=== PATIENT | female | born 1945 | race African-American/Black ===

== ENCOUNTER 2017-05-23 18:08 | Observation (INO) | payer MEDICARE ==
[~2017-05-23] VITALS: Ht 166.4 cm; Wt 108.3 kg
[2017-05-23 19:02] LABS: BASOPHILS 0.2 % (0-2); EOSINOPHILS 1.5 % (0-7); HEMATOCRIT 45.8 % (36.0-48.0); HEMOGLOBIN 15.4 g/dL (12-16); IMMATURE GRANULOCYTES 0.2 % (0-5); LYMPHOCYTES 56.6 % (15-50); MCH 31.4 pg (26.0-34.0); MCHC 33.6 g/dL (31.0-37.0); MCV 93.3 fL (80.0-100.0); MEAN PLATELET VOLUME 10.1 fL (7.4-10.4); MONOCYTES 4.6 % (2-11); NEUTROPHILS 36.9 % (40-80); PLATELET COUNT 272 10x3/uL (130-400); RBC 4.91 10x6/uL (4.00-5.40); RDW 15.6 % (11.5-14.5); WBC 10.7 10x3/uL (4.8-10.8)
[2017-05-23 19:24] LABS: ALBUMIN 3.3 g/dL (3.4-5.0); ANION GAP 15.9 mmol/L (8-16); BILIRUBIN - TOTAL 0.53 mg/dL (0.2-1.3); CARBON DIOXIDE 23.7 mmol/L (21.0-32.0); CREATININE - SERUM 1.3 mg/dL (0.6-1.3); POTASSIUM - SERUM 3.6 mmol/L (3.5-5.1); PROTEIN - SERUM 7.6 g/dL (6.4-8.2)
[2017-05-24] VITALS: BP 189/90
[2017-05-24] MEDS ORDERED: VALTREX1000 MG PO (00:22)
[2017-05-24] MEDS ORDERED: STERAPRED DS 1010 MG PO (00:23)
[2017-05-24] MEDS ORDERED: NORVASC5 MG PO (00:23)
[2017-05-24] MEDS ORDERED: PRINIVIL20 MG PO (00:23)
[2017-05-24] MEDS ORDERED: OMEPRAZOLE40 MG PO (00:23)
[2017-05-24] MEDS ORDERED: BAYER CHEWABLE81 MG PO (00:24)
[2017-05-24 00:54] VITALS: BP 189/90; Ht 166.4 cm; Wt 108.3 kg
[2017-05-24 04:00] VITALS: BP 146/95
[2017-05-24 09:12] VITALS: BP 131/66
--- NOTE | 2017-05-24 11:58 | NUR ---
TELEMETRY SR. UP ADLIB IN ROOM. GAIT STEADY.
[2017-05-24 12:39] VITALS: BP 156/87
[2017-05-24] MEDS ORDERED: NORVASC10 MG PO (12:46)
--- NOTE | 2017-05-24 14:22 | NUR ---
IV AND TELEMETRY DCD. DC PLANS GIVEN. UNDERSTANDING VOICED. ESCORTED TO CAR BY W/C.
--- NOTE | 2017-05-25 12:12 | DS ---
PATIENT:MADAY ROCHE :41 MEDICAL RECORD: [id number] DISCHARGE SUMMARY ADMISSION DATE: 05/23/17 DISCHARGE DATE: 05/24/17 A 72-year-old -Micronesian female. DATE OF ADMISSION: 05/24/2017. DATE OF DISCHARGE: 05/24/2017. ADMISSION DIAGNOSIS: Angioedema. DISCHARGE DIAGNOSIS: Angioedema. HOSPITAL COURSE: The patient was admitted for observation from the ER with lip swelling and tongue swelling likely secondary to lisinopril. The patient is asymptomatic. Symptoms have completely resolved and she is anxious for discharge. We will be discharge home in improved condition. Discontinue lisinopril, substitute amlodipine for blood pressure control. Follow up with Dr. Del Valle in 1 week. See chart for further details. TRANSINT:[id number] Voice Confirmation ID: [id number] DOCUMENT ID: [id number] XOCHITL GROVE DO at 1212 CC: [id number] DICTATION DATE: 05/24/17 1244 TILE ROOFER: 05/25/17 0017 DIS IN 05/24/17 [facility] [address] [place] [address]
--- NOTE | 2017-05-25 12:12 | HP ---
PATIENT: MADAY ROCHE MEDICAL RECORD: [id number] ACCOUNT: [id number] LOCATION:[address] : 41 ADMISSION DATE: 05/23/17 HISTORY AND PHYSICAL EXAMINATION HISTORY OF PRESENT ILLNESS: The patient presents to the Emergency Room with lip swelling, mouth and throat swelling, tongue swelling after taking her lisinopril. PAST MEDICAL HISTORY: Significant for hypertension, arthritis. ALLERGIES: REPORTED IS PENICILLIN. CURRENT MEDICATION LIST: Lisinopril, aspirin, omeprazole, hydrocodone, valacyclovir for recent shingles outbreak. REVIEW OF SYSTEMS: CONSTITUTIONAL: No acute change in weight or appetite. HEENT: Normocephalic. No visual changes, tinnitus, epistaxis. Did have acute onset of lip swelling, tongue swelling. CARDIOVASCULAR: Denies chest pain, denies palpitations. PULMONARY: Denies hemoptysis, denies night sweats. GASTROINTESTINAL: Denies hematemesis, hematochezia or melena. GENITOURINARY: Denies dysuria, no change in frequency. MUSCULOSKELETAL: No acute changes. PHYSICAL EXAMINATION: VITAL SIGNS: Temperature 97.7, blood pressure 131/66, heart rate 70, respirations 24, O2 sat 96% on room air. GENERAL: Alert, oriented, no acute distress. HEENT: Normocephalic, atraumatic. Eyes: Pupils equal, round, reactive to light and accommodation. Extraocular muscles intact. Conjunctivae not injected. Ears: Canals patent. TMs are intact. Nose: Nares patent without drainage. Throat: No erythema, no exudates. NECK: Supple. No lymphadenopathy. No JVD. HEART: Regular rate and rhythm. No S3, S4, no rub. LUNGS: Clear to auscultation bilaterally. Breathing is nonlabored. ABDOMEN: Soft and nontender. Bowel sounds in all 4 quadrants. EXTREMITIES: Present times 4, no edema. NEUROLOGIC: Intact. ASSESSMENT AND PLAN: CBC: White count 10.7, hemoglobin 15.4, hematocrit 45.8, platelets 272. Chemistry is normal. BUN 12, creatinine 1.3. ASSESSMENT AND PLAN: Angioedema, likely lisinopril reaction. Lisinopril is discontinued. The patient is started on amlodipine. Symptoms have completely resolved. The patient was admitted to observation and will discharge home in stable and significantly improved condition. TRANSINT:[id number] Voice Confirmation ID: [id number] DOCUMENT ID: [id number] HISTORY AND PHYSICAL [id number] MADAY ROCHE ROBERT DO at 1212 CC: [id number] DICTATION DATE: 05/24/17 1242 SLEEPER CUTTER: 05/24/17 1713 DIS IN 05/24/17 [facility] [address] [facility], [facility]
== END 2017-05-24 14:00 | disposition home or self-care (01) ==
LOC: D.ER 18:08 → OBSVTIME 22:34 → D.M2 22:34
PROVIDERS: Emergency Medicine; ADMIT Family Medicine
DX: T78.3XXA Angioneurotic edema, initial encounter (principal); I10 Essential (primary) hypertension

== ENCOUNTER 2018-06-26 07:57 | Outpatient (CLI) | payer MEDICARE ==
[~2018-06-26] VITALS: Ht 166.4 cm; Wt 110.9 kg
--- NOTE | ~2018-06-26 | OP ---
PATIENT NAME: MADAY ROCHE MEDICAL RECORD: [id number] :41 LOCATION:D.CAT ADMISSION DATE: SURGEON: MIRIAM BHATT MD DATE OF OPERATION: 06/26/2018 PROCEDURES: 1. PTCA stent RCA. 2. Intravascular ultrasound. 3. Left heart catheterization. 4. Selective coronary angiography. 5. Left ventriculogram. INDICATION: Angina and coronary artery disease. PROCEDURE IN DETAIL: After informed consent was obtained and after a detailed description of risks, benefits as well as alternative therapies, the patient elected to proceed with angiogram and angioplasty. The right radial area was prepped and draped in normal sterile fashion. Right radial artery was cannulated via modified Seldinger technique with placement of 6-Vincentian sheath. All catheters exchanged through this sheath. FINDINGS: Left ventriculogram was performed in a standard 30-degree CLAIRE view, reveals good cardiac wall motion throughout all segments. Overall ejection fraction estimated 60%. SELECTIVE CORONARY ANGIOGRAPHY: 1. Left main is with no significant angiographic disease. 2. Left anterior descending has moderate irregularities, but no flow-limiting stenosis. 3. The left circumflex has moderate irregularities, but no flow-limiting stenosis. 4. Right coronary artery has a 65% to 70% stenosis confirmed by intravascular ultrasound in the mid vessel. PTCA STENT OF THE RCA: The stent used was a 3.0 x 18 mm Integrity. Result was 0% residual stenosis. OVERALL IMPRESSION: Successful percutaneous transluminal angioplasty stent of the right coronary artery going from 65% to 70% initial stenosis to 0% residual. TRANSINT:[id number] Voice Confirmation ID: [id number] DOCUMENT ID: [id number] MIRIAM BHATT MD at 1816 CC: [id number] DICTATION DATE: 06/26/18 1155 MULTIPLE TUBE WINDING MACHINE OPERATOR: 06/26/18 1207 [address] [place] [address]
--- NOTE | ~2018-06-26 | HEMODYNAMI ---
PATIENT:MADAY ROCHE MEDICAL RECORD: [id number] : 41 LOCATION:DDEDE ADMISSION DATE: 06/26/18 Generatedon:06/26/201811:56 Patient name: MADAY ROCHE Patient #: [id number] SSN: : 1945 Date of study: 06/26/2018 Page: Of Hemodynamic Procedure Report Patient Data Patient Demographics Procedure consent was obtained First Name: MADAY Gender: Female Last Name: MELCHOR : 1945 [facility] Initial: L Age: 73 year(s) Patient #: [id number] Race: Black Additional ID: [id number] Contact details Address: [address] [place] [address] [facility] State: [place] City: [facility] Zip code: [address] Past Medical History Allergies Allergen Reaction Date Comments Reported Penicillins 06/26/2018 Admission Admission Data Admission Date: 06/26/2018 Admission Time: 7:57 Lab Results Lab Result Date: 06/26/2018 Lab Result Time: 0:00 Biochemistry Name Units Result Min Max BUN mg/dl 9 --(*---)-- 7 18 Creatinine mg/dl 1 --(--*-)-- 0.6 1.3 CBC Name Units Result Min Max Hemoglobin g/dl 14.2 --(*---)-- 13.5 17.5 Procedure Procedure Types Cath Procedure Diagnostic Procedure C [facility] w/Coronaries FFR/IVUS Intra-Coronary IVUS Initial Sedation Charges Moderate Sedation up to 15 minutes PCI Procedure Coronary Stent Coronary Stent Initial Procedure Description Procedure Date Procedure Date: 06/26/2018 Procedure Start Time: 11:38 Procedure End Time: 11:52 Procedure Staff Name Function Hamlet Whitaker MD Performing Physician Elvira George RT Monitor Shannan Nunez RT Scrub Carolina Barraza RN Nurse Procedure Data Cath Procedure Fluoroscopy Diagnostic fluoroscopy Total fluoroscopy Time: 3.8 time: 3.8 min min Diagnostic fluoroscopy Total fluoroscopy dose: 794 dose: 794 mGy mGy Contrast Material Contrast Material Type Amount (ml) Isovue 370 70 Entry Location Entry Primary Successful Side Size Upsize Upsize Entry Closure Aguayo ccessful Closure Location (Fr) 1 (Fr) 2 (Fr) Remarks Device Remarks Radial Right 6 Fr Mechanical artery Short Compression Estimated blood loss: 10 ml Diagnostic catheters Device Type Used For End Catheter Placement DIAGNOSTIC Bethany 110cm 5 Procedure Fr catheter ([id number]) Procedure Complications No complications Procedure Medications Medication Administration Route Dosage Oxygen NC 2 l/min Lidocaine 2% added to field 20 Heparin Flush Bag added to field 2 bags (1000units/500ml NS) 0.9% NaCl I.V. 100 ml/hr Radial Cocktail I.A. 1 syringe (Verapomil 2mg/Nitro 400mcg/Heparin 1500units) Versed I.V. 1 mg Fentanyl I.V. 50 mcg Versed I.V. 1 mg Fentanyl I.V. 50 mcg Heparin Bolus I.V. 4000 units Integrilin (Bolus I.V. 10.2 ml 2mg/ml) Versed I.V. 0.5 mg Plavix P.O. 600 mg Hemodynamics Rest HGB: 14.2 (g/dl) Heart Rate: 70 (bpm) Snapshots Pre Cath Intra NCS Post Cath Vital Signs Time Heart Resp SPO2 etCO2 NIBP (mmHg) Rhythm Pain Sedation Rate (ipm) (%) (mmHg) Status Level (bpm) 11:16:35 66 13 97 32.3 Measuring NSR 0 (11) 10(A) , No pain 11:17:28 65 17 96 31.5 208/103(153) NSR 0 (11) 10(A) , No pain 11:22:06 65 12 94 36.8 171/89(135) NSR 0 (11) 10(A) , No pain 11:26:47 60 15 95 34.5 156/76(113) NSR 0 (11) 10(A) , No pain 11:31:19 61 16 93 34.5 154/83(125) NSR 0 (11) 10(A) , No pain 11:35:58 60 17 93 30 148/77(108) NSR 0 (11) 10(A) , No pain 11:40:24 81 13 94 36 162/87(132) NSR 0 (11) 9(A) , No pain 11:45:03 72 12 93 33 165/82(109) NSR 0 (11) 9(A) , No pain 11:49:39 74 12 94 37.6 173/89(125) NSR 0 (11) 9(A) , No pain 11:56:02 75 14 95 35.3 169/87(132) NSR 0 (11) 10(A) , No pain Medications Time Medication Route Dose Verified Delivered Reason Note s Effectiveness by by 11:17:07 Oxygen NC 2 l/min Hamlet Buffie used for Sherman Barraza RN procedure 11:17:13 Lidocaine 2% added 20ml Hamlet Mcnulty for local to vial Sherman Whitaker MD anesthetic field 11:17:20 Heparin Flush added 2 bags Hamlet Mcnulty used for Bag to Sherman Whitaker MD procedure (1000units/500ml field NS) 11:17:30 0.9% NaCl I.V. 100 Hamlet Buffie Per physician ml/hr Sherman Barraza RN 11:32:20 Versed I.V. 1 mg Hamlet Figueroa for sedation Sherman Barraza RN 11:32:30 Fentanyl I.V. 50 mcg Hamlet Figueroa for sedation Sherman Barraza RN 11:39:46 Versed I.V. 1 mg Hamlet Figuerao for sedation Sherman Barraza RN 11:39:50 Fentanyl I.V. 50 mcg Hamlet Galarzaie for sedation Sherman Barraza RN 11:39:53 Radial Cocktail I.A. 1 Hamlet Mcnulty for (Verapomil syringe Sherman Whitaker MD vasodilation 2mg/Nitro 400mcg/Heparin 1500units) 11:43:25 Versed I.V. 0.5 mg Hamlet Figueroa for sedation Sherman Barraza RN 11:45:31 Heparin Bolus I.V. 4000 Hamlet Figueroa for VERI FIED units Sherman Barraza RN anticoagulation WITH DR WHITAKER 11:48:41 Integrilin I.V. 10.2 ml Hamlet Figueroa for WAST ED (Bolus 2mg/ml) Sherman Barraza RN antiplatelet 9.8 ML therapy OF VIAL 11:54:39 Plavix P.O. 600 mg Hamlet Figueroa for Sherman Barraza RN antiplatelet therapy Procedure Log Time Note 10:55:14 Elvira HESS(R) sent for patient. Start room use. 10:59:15 Time tracking: Regular hours (M-F 7:00 - 5:00) 10:59:18 Plan of Care:Hemodynamics will remain stable., Cardiac rhythm will remain stable., Comfort level will be maintained., Respiratory function will remain adequate., Patient/ family verbilizes understanding of procedure., Procedure tolerated without complication., Recovers from procedure without complications.. 10:59:25 H&P Date Dictated: 06/17/2018 Within 30 days and on chart., H&P Addendum completed by physician on day of procedure. (MUST COMPLETE FOR ALL OUTPATIENTS). 10:59:40 Patient allergic to Penicillins 11:01:01 Lab Result : BUN 9 mg/dl 11:01:01 Lab Result : Creatinine 1 mg/dl 11:01:01 Lab Result : Hemoglobin 14.2 g/dl 11:02:19 Patient received from Pre/Post Procedure Room to CCL 2 Alert and oriented. Tansferred to table in Supine position. 11:02:21 Warm blankets applied, and maynor hugger turned on for patient comfort. 11:02:21 Correct patient and procedure confirmed by team. 11:02:22 Signed procedure consent form obtained from patient. 11:02:24 ECG and BP/O2 sat monitors applied to patient. 11:14:45 Vital chart was started 11:14:46 Baseline sample Acquired. 11:14:49 Rhythm: sinus rhythm 11:14:51 Full Disclosure recording started 11:14:51 Pre-procedure instructions explained to patient. 11:14:51 Pre-op teaching completed and patient verbalized understanding. 11:14:53 Family in patients room. 11:14:54 Patient NPO since Midnight. 11:14:56 Is the patient allergic to Iodine/contrast media? No. 11:14:58 Is patient on blood thinner?No 11:15:04 Patient diabetic? No. 11:15:07 Patient not . Patient is over age 55. 11:15:10 Previous problem with sedation/anesthesia? No ? 11:15:11 Snore? Yes 11:15:12 Sleep apnea? Yes 11:15:13 Deviated septum? No 11:15:13 Opens mouth fully? Yes 11:15:14 Sticks out tongue? Yes 11:15:16 Airway obstruction? No ? 11:15:24 Dentures? Yes PARTIAL 11:15:27 Modified Tomas's test Ulnar < 7 seconds 11:15:30 Patient pain scale 0/10 ?. 11:15:38 IV patent on arrival in left hand with 0.9% NaCl at [facility]. 11:15:40 Lab results completed and on chart. 11:15:43 Right Radial & Right Groin area was prepped with chlora-prep and draped in sterile fashion 11:15:44 Alarms reviewed by R. N. 11:15:44 Sharps counted by scrub and verified by R.N. 11:15:47 Use device set Radial Dx or PCI 11:15:48 ACIST Syringe (95594) opened to sterile field. 11:15:50 Bag Decanter (2002S) opened to sterile field. 11:15:50 ACIST Hand Control (53965) opened to sterile field. 11:15:51 ACIST Manifold (00803) opened to sterile field. 11:15:52 Tegaderm 4 x 4 (1626W) opened to sterile field. 11:15:53 Medline Cath Pack ([id number]) opened to sterile field. 11:15:53 DIAGNOSTIC WIRE .035 260cm J wire (759009) opened to sterile field. 11:15:54 MBrace Wrist Support ([id number]) opened to sterile field. 11:15:55 SHEATH 6Fr Prelude Radial ([id number]) opened to sterile field. 11:17:07 Oxygen 2 l/min NC was administered by Carolina Barraza RN; used for procedure; 11:17:13 Lidocaine 2% 20ml vial added to field was administered by Hamlet Whitaker MD; for local anesthetic; 11:17:20 Heparin Flush Bag (1000units/500ml NS) 2 bags added to field was administered by Hamlet Whitaker MD; used for procedure; 11:17:30 0.9% NaCl 100 ml/hr I.V. was administered by Carolina Barraza RN; Per physician; 11:31:00 --------ALL STOP TIME OUT------ 11:31:00 Final Timeout: patient, procedure, and site verified with staff and physician. All members of the team are in agreement. 11:31:02 Right Radial & Right Groin site verified by team. 11:31:05 Physical assessment completed. ASA score P 2 - A patient with mild systemic disease as per Hamlet Whitaker MD. 11:31:09 Sedation plan: IV Moderate Sedation Medication:Versed, Fentanyl 11:31:13 Zero performed for pressure channel P1 11:32:20 Versed 1 mg I.V. was administered by Carolina Barraza RN; for sedation; 11:32:30 Fentanyl 50 mcg I.V. was administered by Carolina Barraza RN; for sedation; 11:37:53 Procedure started. 11:38:06 Local anesthetic to right radial artery with Lidocaine 2% by Hamlet Whitaker MD.INITIAL ACCESS ONLY 11:39:11 A 6 Fr Short sheath was inserted into the Right Radial artery 11:39:18 A DIAGNOSTIC Bethany 110cm 5 Fr catheter (024203) was advanced over the wire and used for Procedure. 11:39:46 Versed 1 mg I.V. was administered by Carolina Barraza RN; for sedation; 11:39:50 Fentanyl 50 mcg I.V. was administered by Carolina Barraza RN; for sedation; 11:39:53 Radial Cocktail (Verapomil 2mg/Nitro 400mcg/Heparin 1500units) 1 syringe I.A. was administered by Hamlet Whitaker MD; for vasodilation; 11:40:11 LV gram done using CLAIRE 11:40:14 Injector settings: Ml/sec: 5, Volume: 15, 11:40:58 EF : 60 % 11:41:42 LCA angiography performed. 11:43:11 RCA angiography performed. 11:43:12 Catheter removed. 11:43:18 [place] IVUS Catheter (36844Y) opened to sterile field. 11:43:22 INFLATOR Merit BasixCompak (BE8116) opened to sterile field. 11:43:25 Versed 0.5 mg I.V. was administered by Carolina Barraza RN; for sedation; 11:43:28 CHOICE PT Extra Support 182cm wire ([id number]) opened to sterile field. 11:44:12 GUIDE 6FR AR 1.0 SH catheter ([id number]) opened to sterile field. 11:44:21 6 Fr AR 1 SH guide catheter was inserted over the wire 11:44:28 CHOICE ES 182 wire advanced. 11:45:09 Wire advanced across lesion. 11:45:28 IVUS catheter advanced over wire. 11:45:31 Heparin Bolus 4000 units I.V. was administered by Carolina Barraza RN; for anticoagulation; VERIFIED WITH DR WHITAKER 11:46:50 IVUS pass to RCA lesion performed. 11:46:51 IVUS catheter removed over wire. 11:48:41 Integrilin (Bolus 2mg/ml) 10.2 ml I.V. was administered by Carolina Barraza RN; for antiplatelet therapy; WASTED 9.8 ML OF VIAL 11:49:16 Place stent Inflation Number: 1 A INTEGRITY RX 3.0 x 18 stent ([id number]) was prepped and advanced across the Mid RCA. The stent was deployed at 13 YEN for 0:10 (min:sec). 11:49:29 Stent catheter was removed intact over wire. 11:49:30 Wire removed. 11:49:31 Guide catheter removed. 11:49:52 Procedure ended.(Physican Out) 11:50:02 TR BAND Standard ([id number]) opened to sterile field. 11:50:08 Sheath removed intact; hemostasis achieved with Mechanical Compression to the Right Radial artery. 11:51:17 Fluoroscopy time 03.80 minutes. 11:51:26 Fluoroscopy dose: 794 mGy 11:51:26 Flurop Dose total: 794 11:51:31 Contrast amount:Isovue 370 70ml. 11:51:32 Sharps counted by scrub and verified by R.N. 11:51:34 TR band inflated with 10cc of air. 11:51:37 Post-procedure physical assessment completed. ASA score P 2 - A patient with mild systemic disease as per Hamlet Whitaker MD. 11:51:41 Post procedure rhythm: sinus rhythm 11:51:45 Estimated blood loss: 10 ml 11:51:46 Post procedure instruction explained to patient.Patient verbalizes understanding. 11:51:47 Patient needs reinforcement of post procedure teaching. 11:52:10 Procedure type changed to Cath procedure, Diagnostic procedure, LHC, LHC w/Coronaries, FFR/IVUS, Intra-Coronary IVUS Initial, Sedation Charges, Moderate Sedation up to 15 minutes, PCI procedure, Coronary Stent, Coronary Stent Initial 11:52:30 Procedure and supply charges have been captured, reviewed, submitted and are correct. 11:52:33 Procedure Complication : No complications 11:52:34 Vital chart was stopped 11:52:35 See physician's report for complete and final results. 11:52:36 Report given to Pre/Post Procedure Room. 11:52:38 Patient transfered to Pre/Post Procedure Room with Bed. 11:52:40 Procedure ended. 11:52:40 Full Disclosure recording stopped 11:52:43 End room use (Document Last) 11:54:39 Plavix 600 mg P.O. was administered by Carolina Barraza RN; for antiplatelet therapy; Intervention Summary Intervention Notes Time ActionType Lesion and Equipment Action# Pressure Duration Attributes Used 11:49:16 Place stent Mid RCA INTEGRITY RX 1 13 00:10 3.0 x 18 stent ([id number]) Device Usage Item Name Manufacture Quantity Catalog Number Hospital Part Current M inimal Lot# / Charge Number Stock Stock Serial# Code ACIST Syringe Acist 1 03006 961091 405133 539768 2 0 (18512) [employer] Bag Decanter Microtek 1 2001S 467889 13434 898190 5 (2001S) Medical Inc. ACIST Hand Acist 1 00915 759668 317200 555874 5 Control (96328) [employer] Systems Inc ACIST Manifold Acist 1 26971 631850 966078 283486 5 (83204) Medical Systems Inc Tegaderm 4 x 4 3M 1 1626W 239470 062475 833255 5 (1626W) Medline Cath Cardinal 1 [id number] 215226 42710 950204 5 [facility] ([id number]) DIAGNOSTIC WIRE St Fly 1 780098 330043 998863 328099 3 0 .035 260cm J wire (523363) MBrace Wrist Advanced 1 140-0250-00 540282 65638 956068 5 Support Vascular ([id number]) Dynamics SHEATH 6Fr Merit 1 [id number] 919929 501549 548456 5 Prelude Radial Medical ([id number]) DIAGNOSTIC Terumo 1 32-8311 092934 496176 738634 5 Bethany 110cm 5 Fr catheter (415573) [place] 1 [id number] 598218 518445 354273 8 [place] IVUS Catheter (27311L) INFLATOR Merit Merit 1 [id number] 321240 998014 208314 1 5 [employer] (DT9996) CHOICE PT Extra [place] 1 [id number] 642937 921173 756124 5 Support 182cm Scientific wire ([id number]) GUIDE 6FR AR Medtronic 1 [id number] 799965 11872 063464 1 1.0 SH catheter ([id number]) INTEGRITY RX Medtronic 1 [id number] 476932 192490 671474 5 [id number] 3.0 x 18 stent ([id number]) TR BAND Terumo 1 [id number] 015935 719094 454412 4 0 Standard ([id number]) Signature Audit [place] Stage Time Signature Unsigned Intra-Procedure 06/26/2018 Shannan Nunez 11:56:35 AM RT(R) Signatures Monitor : Elvira George Signature : RT Date : Time : [id number] [place] [address]
[~2018-06-26 07:57] MED LIST: BAYER CHEWABLE81 MG PO; NORVASC10 MG PO; NORVASC5 MG PO; OMEPRAZOLE40 MG PO; PRINIVIL20 MG PO; STERAPRED DS 1010 MG PO; VALTREX1000 MG PO
[2018-06-26 08:45] VITALS: BP 150/102; Ht 166.4 cm; Wt 110.9 kg
[2018-06-26 08:51] LABS: HEMATOCRIT 40.9 % (36.0-48.0); HEMOGLOBIN 14.2 g/dL (12-16); MCH 31.1 pg (26.0-34.0); MCHC 34.7 g/dL (31.0-37.0); MCV 89.5 fL (80.0-100.0); MEAN PLATELET VOLUME 10.3 fL (7.4-10.4); PLATELET COUNT 301 10x3/uL (130-400); RBC 4.57 10x6/uL (4.00-5.40); WBC 8.1 10x3/uL (4.8-10.8)
[2018-06-26 09:00] LABS: ANION GAP 13.7 mmol/L (8-16); CALCIUM 9.4 mg/dL (8.5-10.1); CARBON DIOXIDE 26.6 mmol/L (21.0-32.0); POTASSIUM - SERUM 3.3 mmol/L (3.5-5.1)
[2018-06-26 09:29] LABS: EOSINOPHILS 2 % (0-7); LYMPHOCYTES 25 % (15-50); MONOCYTES 9 % (2-11); NEUTROPHILS 32 % (40-80); PLATELET ESTIMATE NORMAL
[2018-06-26 09:30] LABS: PLATELET MORPHOLOGY NORMAL PLT MORPH; SMUDGE CELLS OCC
[2018-06-26] MEDS ORDERED: PLAVIX75 MG PO (12:13)
== END 2018-06-26 16:00 | disposition home or self-care (01) ==
LOC: D.CATH 07:57
PROVIDERS: Internal Medicine Interventional Cardiology
DX: I25.119 Atherosclerotic heart disease of native coronary artery with unspecified angina pectoris (principal); Z01.812 Encounter for preprocedural laboratory examination

== ENCOUNTER 2020-02-02 15:45 | Inpatient (IN) | payer MEDICARE ==
[~2020-02-02] VITALS: Ht 166.4 cm; Wt 90.9 kg
--- NOTE | ~2020-02-02 | HEMODYNAMI ---
PATIENT:MADAY ROCHE MEDICAL RECORD: [id number] : 41 [facility] [id number] ADMISSION DATE: 02/02/20 Generatedon:02/03/20200:10 Patient name: MADAY ROCHE Patient #: [id number] SSN: : 1945 Date of study: 02/02/2020 Page: Of Hemodynamic Procedure Report Patient Data Patient Demographics Procedure consent was obtained First Name: MADAY Gender: Female Last Name: MELCHOR : 1945 Middle Initial: L Age: 74 year(s) Patient #: [id number] Race: Black Additional ID: [id number] Contact details Address: [address] [place] [address] [facility] State: [place] City: [facility] Zip code: [address] Past Medical History Allergies Allergen Reaction Date Comments Reported Penicillins 06/26/2018 Penicillins 02/02/2020 Admission Admission Data Admission Date: 02/02/2020 Admission Time: 15:45 Height (in.): 65 BSA: 2.2 (m2) Height (cm.): 165.1 BMI: 42.6 (kg/m2) Weight (lbs.): 256 Weight (kg.): 116.12 Procedure Procedure Types Cath Procedure Peripheral Cath Diagnostic Procedure Geophysical Laboratory Supervisor Peripheral Procedures Abd/Extremity Extremities Bilat Lower Extremity Procedure Description Procedure Date Procedure Date: 02/02/2020 Procedure Start Time: 20:28 Procedure Staff Name Function Jhonatan Wang MD Performing Physician Almaz Hugo RT Human Resources Benefits Administrator Ann-Marie Choudhary RN Nurse Dash Galvan RT Scrub Procedure Data Cath Procedure Fluoroscopy Diagnostic fluoroscopy Total fluoroscopy Time: 36 time: 36 min min Diagnostic fluoroscopy Total fluoroscopy dose: dose: 2593 mGy 2593 mGy Contrast Material Contrast Material Type Amount (ml) Isovue 300 185 Diagnostic catheters Device Type Used For End Catheter Placement DIAGNOSTIC IMT 5Fr Catheter ([id number]) Procedure Medications Medication Administration Route Dosage Versed I.V. 1 mg Fentanyl I.V. 50 mcg Heparin Flush Bag added to field 3 bags (1000units/500ml NS) Lidocaine 1% added to field 20 Hydralizine I.V. 20 mg Versed I.V. 1 mg Fentanyl I.V. 50 mcg Heparin Bolus I.V. 5000 units Labetalol I.V. 10 mg Labetalol I.V. 15 mg Versed I.V. 1 mg Fentanyl I.V. 50 mcg Versed I.V. 1 mg Fentanyl I.V. 50 mcg Labetalol I.V. 10 mg unlisted medication Heparin Bolus I.V. 3000 units Labetalol I.V. 10 mg Labetalol I.V. 10 mg Hemodynamics Rest BSA: 2.2 (m2) O2 Consumption: Estimated: 230.59 (ml/min) O2 Consumption indexed: Estimated:104.81 (ml/min/m) Heart Rate: 108 (bpm) Snapshots Pre Cath Intra NCS Post Cath Vital Signs Time Heart Resp SPO2 etCO2 NIBP (mmHg) Rhythm Pain Sedation Rate (ipm) (%) (mmHg) Status Level (bpm) 20:17:12 106 26 96 27 Measuring NSR 0 (11) 10(A) , No pain 20:17:23 105 27 96 26.2 Out of range NSR 0 (11) 10(A) , No pain 20:20:31 106 17 96 29.2 217/101(149) NSR 0 (11) 10(A) , No pain 20:25:14 104 3 97 34.5 209/99(138) NSR 0 (11) 10(A) , No pain 20:30:01 105 6 97 33.8 219/99(147) NSR 0 (11) 10(A) , No pain 20:32:14 99 16 94 35.3 196/97(139) NSR 0 (11) 10(A) , No pain 20:37:13 99 13 96 35.3 Measuring NSR 0 (11) 8(A) , No pain 20:37:19 99 13 95 35.3 194/92(131) NSR 0 (11) 8(A) , No pain 20:40:15 103 19 96 33 189/94(133) NSR 0 (11) 8(A) , No pain 20:44:55 105 17 96 31.5 199/88(122) NSR 0 (11) 8(A) , No pain 20:49:38 107 20 97 33.8 193/88(127) NSR 0 (11) 8(A) , No pain 20:54:19 112 15 97 30 187/84(131) NSR 0 (11) 8(A) , No pain 20:58:57 118 18 97 27.7 203/88(131) NSR 0 (11) 8(A) , No pain 21:03:44 112 18 96 28.5 198/93(130) NSR 0 (11) 8(A) , No pain 21:08:27 111 35 97 28.5 201/93(132) NSR 0 (11) 8(A) , No pain 21:13:26 91 13 96 28.5 Measuring NSR 0 (11) 8(A) , No pain 21:14:21 91 18 96 27.7 166/81(117) NSR 0 (11) 8(A) , No pain 21:18:53 83 20 96 23.2 173/85(136) NSR 0 (11) 8(A) , No pain 21:23:20 85 15 95 27.7 169/87(132) NSR 0 (11) 8(A) , No pain 21:27:50 88 14 94 29.2 174/86(123) NSR 0 (11) 8(A) , No pain 21:32:12 91 16 95 27.7 168/91(132) NSR 0 (11) 8(A) , No pain 21:36:39 92 14 95 14.2 179/95(137) NSR 0 (11) 8(A) , No pain 21:41:13 93 13 95 31.5 189/88(139) NSR 0 (11) 8(A) , No pain 21:46:12 96 13 96 35.3 Measuring NSR 0 (11) 8(A) , No pain 21:46:51 93 14 96 34.5 190/90(140) NSR 0 (11) 8(A) , No pain 21:51:17 85 17 96 24 157/83(139) NSR 0 (11) 8(A) , No pain 21:55:44 83 19 96 33.8 160/85(127) NSR 0 (11) 8(A) , No pain 22:00:43 84 24 95 31.5 Measuring NSR 0 (11) 8(A) , No pain 22:01:05 85 24 96 34.5 169/83(117) NSR 0 (11) 8(A) , No pain 22:05:32 82 11 95 32.3 160/82(124) NSR 0 (11) 8(A) , No pain 22:10:02 84 15 96 33.8 162/82(116) NSR 0 (11) 8(A) , No pain 22:14:26 86 22 96 28.5 164/85(124) NSR 0 (11) 8(A) , No pain 22:18:57 87 12 94 25.5 174/87(128) NSR 0 (11) 8(A) , No pain 22:23:27 95 8 92 16.5 158/87(127) NSR 0 (11) 8(A) , No pain 22:27:55 80 13 92 17.2 159/76(121) NSR 0 (11) 8(A) , No pain 22:32:54 82 13 95 20.3 Measuring NSR 0 (11) 8(A) , No pain 22:33:21 81 13 95 33 163/87(124) NSR 0 (11) 8(A) , No pain 22:37:49 82 21 96 29.3 163/87(132) NSR 0 (11) 8(A) , No pain 22:42:18 83 29 96 36.1 170/88(127) NSR 0 (11) 8(A) , No pain 22:46:44 85 25 95 28.5 173/94(128) NSR 0 (11) 8(A) , No pain 22:51:06 82 11 95 29.3 166/91(129) NSR 0 (11) 8(A) , No pain 22:55:32 81 15 97 169/89(128) NSR 0 (11) 8(A) , No pain 23:00:00 81 12 96 31.5 166/90(123) NSR 0 (11) 8(A) , No pain 23:04:29 80 18 95 30.8 167/93(128) NSR 0 (11) 8(A) , No pain 23:08:51 81 25 96 33.8 168/92(136) NSR 0 (11) 8(A) , No pain 23:13:17 82 26 96 30 173/89(133) NSR 0 (11) 8(A) , No pain 23:17:45 77 11 94 27.8 152/81(117) NSR 0 (11) 8(A) , No pain 23:22:00 75 11 94 15 136/83(107) NSR 0 (11) 8(A) , No pain 23:26:18 73 11 94 15 138/73(109) NSR 0 (11) 8(A) , No pain 23:30:40 74 11 96 30 145/77(109) NSR 0 (11) 8(A) , No pain 23:35:00 74 8 95 0 129/77(105) NSR 0 (11) 8(A) , No pain 23:39:18 73 19 96 24.8 136/79(112) NSR 0 (11) 8(A) , No pain 23:43:38 73 11 96 33 133/65(100) NSR 0 (11) 8(A) , No pain 23:47:56 73 20 96 32.3 135/72(109) NSR 0 (11) 8(A) , No pain 23:52:14 72 7 96 32.3 137/73(104) NSR 0 (11) 8(A) , No pain 23:56:32 73 31 96 32.3 136/77(100) NSR 0 (11) 8(A) , No pain 0:00:55 74 13 96 30.8 138/69(103) NSR 0 (11) 8(A) , No pain 0:05:19 71 12 96 33.1 135/74(98) NSR 0 (11) 8(A) , No pain 0:09:39 72 13 96 32.3 131/74(106) NSR 0 (11) 8(A) , No pain Medications Time Medication Route Dose Verified Delivered Reason Notes Ef fectiveness by by 20:31:11 Versed I.V. 1 mg Jhonatan Jacobsen for sedation Kenrick Wang RN, MD 20:31:20 Fentanyl I.V. 50 Jhonatan Jacobsen for sedation mcg Kenrick Wang RN, MD 20:31:42 Heparin Flush added 3 Jhonatan Israel used for Bag to bags Felipe Wang MD procedure (1000units/500ml field NS) 20:34:32 Lidocaine 1% added 20ml Jhonatan Israel for local to vial Felipe Wang MD anesthetic field 20:34:49 Hydralizine I.V. 20 mg Jhonatan Jacobsen for Kenrick Wang RN hypertension 21:05:58 Labetalol I.V. 10 mg Jhonatan Jacobsen for Kenrick Wang RN hypertension 21:22:01 Versed I.V. 1 mg Jhonatan Ann-Marie for sedation Kenrick Wang RN, MD 21:22:09 Fentanyl I.V. 50 Jhonatan Ann-Marie for sedation mcg Kenrick Wang RN, MD 21:42:16 Heparin Bolus I.V. 5000 Jhonatan Ann-Marie Per units Kenrick Wang RN physician MD 21:47:41 Labetalol I.V. 15 mg Jhonatan Ann-Marie for Kenrick Wang RN hypertension 21:55:31 Versed I.V. 1 mg Jhonatan Ann-Marie for sedation Kenrick Wang RN, MD 21:55:40 Fentanyl I.V. 50 Jhonatan Ann-Marie for sedation mcg Kenrick Wang RN, MD 22:00:43 activase Felipe Thacker MD MD 22:18:23 Versed I.V. 1 mg Jhonatan Ann-Marie for sedation Kenrick Wang RN, MD 22:18:32 Fentanyl I.V. 50 Jhonatan Ann-Marie for sedation mcg Kenrick Wnag RN, MD 22:21:11 Labetalol I.V. 10 mg Jhonatan Ann-Marie for Kenrick Wang RN hypertension 22:39:05 Heparin Bolus I.V. 3000 Jhonatan Ann-Marie Per units Kenrick Wang RN physician MD 22:47:11 Labetalol I.V. 10 mg Jhonatan Ann-Marie for Kenrick Wang RN hypertension 23:14:34 Labetalol I.V. 10 mg Jhonatan Ann-Marie for Kenrick Wang RN hypertension Procedure Log Time Note 19:47:18 Patient Height : 65 inches 19:47:21 Patient Weight : 256 lbs 19:47:49 Use device set IR Diagnostic 19:48:15 DOC .035 wire (P08501) opened to sterile field. 19:48:16 Micropuncture VSI 4FR kit opened to sterile field. 19:48:16 SHEATH 5FR [place] (LAC743) opened to sterile field. 19:48:17 TUBING Contrast Injection High Pressure (AHY228F) opened to sterile field. 19:48:18 Tegaderm 4 x 4 (1626W) opened to sterile field. 19:48:19 Sterile Angiographic Pack opened to sterile field. 19:48:20 Bag Decanter (2002S) opened to sterile field. 19:48:20 ACIST Manifold (75211) opened to sterile field. 19:48:21 ACIST Hand Control (11812) opened to sterile field. 19:48:22 ACIST Syringe (50661) opened to sterile field. 19:53:10 Angiodynamics Omniflush 5Fr 65cm (96232056) opened to sterile field. 19:53:16 - 20:13:27 Time tracking: Call back (After hours or weekends) 20:13:48 Plan of Care:Hemodynamics will remain stable., Cardiac rhythm will remain stable., Comfort level will be maintained., Respiratory function will remain adequate., Patient/ family verbilizes understanding of procedure., Procedure tolerated without complication., Recovers from procedure without complications.. 20:13:57 Patient received from ED to IR Alert and oriented. Tansferred to table in Supine position. 20:14:00 Signed procedure consent form obtained from patient. 20:14:10 H&P Date Dictated: 02/02/2020 ER History on chart.. 20:14:13 Pre-procedure instructions explained to patient. 20:14:14 Pre-op teaching completed and patient verbalized understanding. 20:14:17 Family in waiting room. 20:14:42 Patient NPO since Breakfast. 20:14:55 Patient allergic to Penicillins 20:14:58 Is the patient allergic to Iodine/contrast media? No. 20:15:02 Is patient on blood thinner?Yes 20:15:09 ACC The patient was administered the following blood thiners within the last 24 hours: ACCHeparin 20:15:17 Patient diabetic? No. 20:15:22 Vital chart was started 20:15:24 - 20:15:26 ----Pre-sedation anethsthesia assessment.---- 20:15:29 Previous problem with sedation/anesthesia? No ? 20:15:32 Snore? Yes 20:15:34 Sleep apnea? Yes 20:15:37 Deviated septum? No 20:15:40 Opens mouth fully? Yes 20:15:42 Sticks out tongue? Yes 20:15:46 Baseline sample Acquired. 20:15:50 Airway obstruction? Yes HEART STENTS 20:15:55 Dentures? No ? 20:16:04 - 20:16:08 Baseline sample Acquired. 20:16:14 Full Disclosure recording started 20:16:16 - 20:16:22 Pre procedure: right dorsailis pedis pulse Doppler 20:16:26 Pre procedure: right posterior tibial pulse Doppler 20:16:32 Pre procedure: left dorsailis pedis pulse 0-Absent 20:16:36 Pre procedure: left posterior tibial pulse 0-Absent 20:16:56 IV patent on arrival in right hand, left forearm with D5/.45%NaCl at [facility]. 20:17:05 Right groin area was prepped with chlora-prep and draped in sterile fashion 20:17:08 - 20:17:15 Fire Safety Assessment: A--An alcohol-based skin anteseptic being used preoperatively., C--Open oxygen or nitrous oxide is being used. 20:17:28 3a) 45-59 Moderately reduced kidney function. 20:18:00 Maximum allowable contrast dose (3.7 X eGFR X 0.75)155 ml. 20:18:09 - 20:27:35 Physician arrived 20:27:36 --------ALL STOP TIME OUT------ 20:27:37 Final Timeout: patient, procedure, and site verified with staff and physician. All members of the team are in agreement. 20:28:03 Procedure started. 20:28:07 Local anesthetic to right femoral artery with Lidocaine 1% by Jhonatan Wang MD.INITIAL ACCESS ONLY 20:28:11 Arterial access obtained using ultrasound guidance. 20:31:11 Versed 1 mg I.V. was administered by Ann-Marie Choudhary RN; for sedation; Verbal order read back and verified. 20:31:20 Fentanyl 50 mcg I.V. was administered by Ann-Marie Choudhary RN; for sedation ; Verbal order read back and verified. 20:31:42 Heparin Flush Bag (1000units/500ml NS) 3 bags added to field was administered by Jhonatan Wang MD; used for procedure; Verbal order read back and verified. 20:34:32 Lidocaine 1% 20ml vial added to field was administered by Jhonatan Wang MD; for local anesthetic; Verbal order read back and verified. 20:34:49 Hydralizine 20 mg I.V. was administered by Ann-Marie Choudhary RN; for hypertension; Verbal order read back and verified. 20:45:47 AMPLATZ Super Stiff 75cm wire ([id number]) opened to sterile field. 20:45:48 GLIDE CATHETER 5FR ANGLED 65cm (CG507) opened to sterile field. 20:45:49 GLIDE WIRE ANGLE 180cm (EO9367) opened to sterile field. 20:48:51 A DIAGNOSTIC IMT 5Fr Catheter ([id number]) was advanced over the wire an d used for . 20:49:52 TORQUE DEVICE PLASTIC .038 ( TD01) opened to sterile field. 21:05:58 Labetalol 10 mg I.V. was administered by Ann-Marie Choudhary RN; for hypertension; Verbal order read back and verified. 21:22:01 Versed 1 mg I.V. was administered by Ann-Marie Choudhary RN; for sedation; Verbal order read back and verified. 21:22:09 Fentanyl 50 mcg I.V. was administered by Ann-Marie Choudhary RN; for sedation ; Verbal order read back and verified. 21:30:53 SHEATH 5FR [place] (BFJ496) opened to sterile field. 21:35:50 SHEATH 6FR [place] (GXZ365) opened to sterile field. 21:36:59 RIVER 260 wire (Y95999) opened to sterile field. 21:38:48 INFUSION CATHETER 10cm [place]-Shyam (8793788) opened to sterile field . 21:42:16 Heparin Bolus 5000 units I.V. was administered by Ann-Marie Choudhary RN; Per physician; Verbal order read back and verified. 21:47:41 Labetalol 15 mg I.V. was administered by Ann-Marie Choudhary RN; for hypertension; Verbal order read back and verified. 21:48:30 Indigo Cat 6f w tubing (NAP0YDS) opened to sterile field. 21:49:06 Indigo System Pump suctin (IAPS2) opened to sterile field. 21:55:31 Versed 1 mg I.V. was administered by Ann-Marie Choudhary RN; for sedation; Verbal order read back and verified. 21:55:40 Fentanyl 50 mcg I.V. was administered by Ann-Marie Choudhary RN; for sedation ; Verbal order read back and verified. 22:00:43 activase was administered by Jhonatan Wang MD; ; Verbal order read back and verified. 22:10:50 SNARE, GOOSENECK SNARE 10MM opened to sterile field. 22:15:15 CXI Catheter 90cm (N09242) opened to sterile field. 22:18:23 Versed 1 mg I.V. was administered by Ann-Marie Choudhary RN; for sedation; Verbal order read back and verified. 22:18:32 Fentanyl 50 mcg I.V. was administered by Ann-Marie Choudhary RN; for sedation ; Verbal order read back and verified. 22:21:11 Labetalol 10 mg I.V. was administered by Ann-Marie Choudhary RN; for hypertension; Verbal order read back and verified. 22:21:11 ROADRUNNER .035 260 glide wire (W51462) opened to sterile field. 22:24:38 SHEATH 6FR [place] (RSR01) opened to sterile field. 22:31:59 RIVER 260 wire (X12732) opened to sterile field. 22:39:05 Heparin Bolus 3000 units I.V. was administered by Ann-Marie Choudhary RN; Per physician; Verbal order read back and verified. 22:40:14 SHEATH 6FR [place] (RSR01) opened to sterile field. 22:40:23 CXI SUPPORT .035 135 CM STR catheter (E35429) opened to sterile field. 22:47:11 Labetalol 10 mg I.V. was administered by Ann-Marie Choudhary RN; for hypertension; Verbal order read back and verified. 23:07:34 Indigo System Separator 6 opened to sterile field. 23:08:59 COPILOT Valve Control (2360530) opened to sterile field. 23:14:32 RIVER 260 wire (J60895) opened to sterile field. 23:14:34 Labetalol 10 mg I.V. was administered by Ann-Marie Choudhary RN; for hypertension; Verbal order read back and verified. 23:35:[address] 1-Way Male Rotating (L58248) opened to sterile field. 23:43:[address] FOR TPA INFUSION 23:43:32 SUTURE ETHILON 2-0 BLK MONO FS opened to sterile field. 23:43:34 SUTURE ETHILON 2-0 BLK MONO FS opened to sterile field. 23:43:46 Contrast amount:Isovue 300 185ml. 23:47:32 Procedure ended.(Physican Out) 23:51:47 Fluoroscopy time 36.00 minutes. 23:51:52 Fluoroscopy dose: 2593 mGy 23:51:52 Flurop Dose total: 2593 23:54:45 Post Procedure Pulses reassessed and unchanged 23:54:55 Report given to CVICU. 0:08:57 Patient transfered to CVICU with Bed. 0:10:09 Vital chart was stopped Device Usage Item Name Manufacture Quantity Catalog Number Hospital Part Current M inimal Lot# / Charge Number Stock Stock Serial# Code DOC .035 wire [employer] 1 [id number] 113218 5 ([id number]) Micropuncture VSI VASCULAR 1 7266V 032273 928044 5 VSI 4FR kit SOLUTIONS SHEATH 5FR Terumo 2 OCD185 872966 431077 941554 5 [place] (OKO954) TUBING [facility] 1 [id number] 501886 358852 031005 5 Contrast Injection High Pressure ([id number]) Tegaderm 4 x 4 3M 1 1626W 387780 061368 563531 5 (1626W) Sterile Cardinal 1 [id number] 152729 445906 5 Angiographic Health Pack Bag Decanter Microtek 1 2001S 237085 09340 543692 5 (2001S) Medical Inc. ACIST Manifold Acist Medical 1 88794 410172 617402 052354 5 (51851) Systems Inc ACIST Hand Acist Medical 1 33869 782593 934029 383892 5 Control Systems Inc (58091) ACIST Syringe Acist Medical 1 25372 151606 558758 335092 2 0 (43207) Systems Inc Angiodynamics Angiodynamics 1 56302244 220277 364813 038465 5 Omniflush 5Fr 65cm (07790032) AMPLATZ Super [place] 1 [id number] 303289 839742 209776 5 Stiff 75cm Scientific wire ([id number]) GLIDE CATHETER Terumo 1 CG507 430561 357153 5 5FR ANGLED 65cm (CG507) GLIDE WIRE Terumo 1 BB8407 097860 670982 826552 5 ANGLE 180cm (LG5280) DIAGNOSTIC IMT [place] 1 [id number] 312173 483193 78391 5 5Fr Catheter Scientific (635199866) TORQUE DEVICE [place] 1 TD01 047811 846548 328317 5 PLASTIC .038 ( Scientific TD01) SHEATH 6FR Terumo 1 SGI837 765524 992958 010432 4 0 [place] (MAX855) RIVER 260 wire [facility] 3 Q89553 266321 88368 456762 5 97718047 (Y07490) 72532791 92329154 INFUSION Medtronic 1 76208-69 595981 019567 5 CATHETER 10cm [place]-Shyam (2461185) Indigo Cat 6f Penumbra 1 [id number] 723484 536035 321123 1 H48315 w tubing (HTX6YVT) Indigo System Penumbra 1 IAPS2 511778 77506 7770152 1 Pump suctin (IAPS2) SNARE, Medtronic 1 TZ7678 972714 32195 346957 5 GOOSENECK SNARE 10MM CXI Catheter [facility] 1 G39374 184958 246396 617369 5 [id number] 90cm (O51095) ROADRUNNER [facility] 1 V46176 058384 118583 765754 5 [id number] .035 260 glide wire (M64418) SHEATH 6FR Terumo 1 RSR01 792279 79083 341438 5 Destination (RSR01) CXI SUPPORT [facility] 1 J26825 762587 569888 494990 5 67529804 .035 135 CM STR catheter (Y60461) Indigo System Penumbra 1 SEP6 492270 554109 090122 1 Separator 6 COPILOT Valve [place] 1 0673191 055994 737363 840085 5 Control Vascular (2427361) STOPCOCK 1-Way [employer] 1 Y50261 564248 25755 868897 5 8466752 Male Rotating (K66822) SUTURE ETHILON Ethicon 2 664H 672263 682802 5 2-0 BLK MONO FS Signature Audit [place] Stage Time Signature Unsigned Intra-Procedure 02/03/2020 Almaz Hugo 12:10:04 AM RT(R) [place] [id number] [place] [address]
--- NOTE | ~2020-02-02 | HEMODYNAMI ---
PATIENT:MADAY ROCHE MEDICAL RECORD: [id number] : 41 LOCATION:[place] [address] ADMISSION DATE: 02/02/20 Generatedon:02/03/202018:34 Patient name: MADAY ROCHE Patient #: [id number] SSN: : 1945 Date of study: 02/03/2020 Page: Of Hemodynamic Procedure Report Patient Data Patient Demographics Procedure consent was obtained First Name: MADAY Gender: Female Last Name: MELCHOR : 1945 Middle Initial: L Age: 74 year(s) Patient #: [id number] Race: Black Additional ID: [id number] Contact details Address: [address] [place] [address] [facility] State: [place] City: [facility] Zip code: [address] Past Medical History Allergies Allergen Reaction Date Comments Reported Penicillins 06/26/2018 Penicillins 02/02/2020 Penicillins 02/03/2020 Admission Admission Data Admission Date: 02/02/2020 Admission Time: 18:34 [facility] Height (in.): 65 BSA: 2.2 (m2) Height (cm.): 165.1 BMI: 42.6 (kg/m2) Weight (lbs.): 256 Weight (kg.): 116.12 Procedure Procedure Types Cath Procedure Peripheral Cath Diagnostic Procedure Sales Lead Peripheral Procedures Abd/Extremity Follow Up Arteriogram Procedure Description Procedure Date Procedure Date: 02/03/2020 Procedure Start Time: 17:16 Procedure Staff Name Function Nikolas Ugalde MD Performing Physician Almaz Hugo RT Motor Mechanic Ann-Marie Choudhary RN Nurse Nickie Muir RN Nurse Dash Galvan RT Scrub Procedure Data Cath Procedure Fluoroscopy Diagnostic fluoroscopy Total fluoroscopy Time: time: 16.4 min 16.4 min Diagnostic fluoroscopy Total fluoroscopy dose: 268 dose: 268 mGy mGy Contrast Material Contrast Material Type Amount (ml) Isovue 300 85 Procedure Medications Medication Administration Route Dosage Heparin Flush Bag added to field 2 bags (1000units/500ml NS) Lidocaine 1% added to field 20 Fentanyl I.V. 50 mcg Heparin Bolus I.V. 5000 units Fentanyl I.V. 50 mcg Ancef (1Gm/50ml NS) I.V.P.B 1 g Fentanyl I.V. 100 mcg Hemodynamics Rest BSA: 2.2 (m2) O2 Consumption: Estimated: 204.69 (ml/min) O2 Consumption indexed: Estimated:93.04 (ml/min/m) Heart Rate: 77 (bpm) Snapshots Pre Cath Intra NCS Post Cath Vital Signs Time Heart Resp SPO2 etCO2 NIBP (mmHg) Rhythm Pain Status Sedation Rate (ipm) (%) (mmHg) Level (bpm) 17:10:34 76 6 96 42.2 160/72(115) NSR 0 (11) , No 10(A) pain 17:14:53 80 13 96 39.2 149/83(128) NSR 0 (11) , No 10(A) pain 17:19:51 77 16 39.2 Measuring NSR 0 (11) , No 10(A) pain 17:20:14 74 8 97 36.2 142/75(115) NSR 4 (11) , 10(A) Distressing 17:24:38 76 10 95 38.5 148/69(113) NSR 4 (11) , 10(A) Distressing 17:29:02 75 12 96 37.7 142/71(111) NSR 3 (11) , 10(A) Tolerable 17:33:23 75 15 96 41.5 141/70(104) NSR 4 (11) , 10(A) Distressing 17:37:45 79 11 96 39.2 145/73(95) NSR 2 (11) , 10(A) Uncomfortable 17:42:07 94 13 96 39.2 152/77(120) NSR 2 (11) , 10(A) Uncomfortable 17:46:37 75 8 98 39.2 126/68(104) NSR 1 (11) , Very 10(A) mild 17:51:36 75 14 39.2 Measuring NSR 1 (11) , Very 10(A) mild 17:52:07 75 13 96 40 146/68(107) NSR 0 (11) , No 10(A) pain 17:56:33 76 13 97 37 158/74(104) NSR 0 (11) , No 10(A) pain 18:01:04 76 8 94 44.5 135/69(105) NSR 0 (11) , No 10(A) pain 18:05:24 76 10 96 43 144/69(93) NSR 0 (11) , No 10(A) pain 18:09:50 80 15 97 29.4 149/67(108) NSR 0 (11) , No 10(A) pain 18:14:49 83 23 96 37.7 Measuring NSR 0 (11) , No 10(A) pain 18:15:12 77 12 96 34.7 152/73(109) NSR 0 (11) , No 10(A) pain 18:19:38 83 21 97 40 153/73(93) NSR 0 (11) , No 10(A) pain 18:24:04 80 6 95 41.5 145/78(100) NSR 0 (11) , No 10(A) pain 18:28:43 86 11 96 40.8 160/31(105) NSR 0 (11) , No 10(A) pain 18:33:15 83 14 96 19.6 150/63(99) NSR 0 (11) , No 10(A) pain Medications Time Medication Route Dose Verified Delivered Reason Notes Eff ectiveness by by 17:09:35 Heparin Flush added 2 Nikolas Connor used for Bag to bags Aftab Ugalde procedure (1000units/500ml field MD LYN NS) 17:09:48 Lidocaine 1% added 20ml Nikolas Connor for local to vial Aftab Ugalde anesthetic field MD LYN 17:21:39 Fentanyl I.V. 50 Nikolas Jacobsen for back mcg Aftab Choudhary RN pain 17:29:21 Heparin Bolus I.V. 5000 Nikolas Jacobsen Per units Aftab Choudhary RN physician 17:36:32 Fentanyl I.V. 50 Nikolas Jacobsen for back mcg Aftab mayen MD 18:16:33 Ancef (1Gm/50ml I.V.P.B 1 g Nikolas Jacobsen Per NS) Aftab mcnulty MD 18:22:04 Fentanyl I.V. 100 Nikolas Jacobsen for back mcg Aftab Choudhary RN pain Procedure Log Time Note 16:28:29 Patient Height : 65 inches 16:28:29 Patient Weight : 256 lbs 16:46:28 Use device set IR Diagnostic 16:46:31 Tegaderm 4 x 4 (1626W) opened to sterile field. 16:46:33 Sterile Angiographic Pack opened to sterile field. 16:46:34 Bag Decanter (2002S) opened to sterile field. 16:46:39 - 16:55:42 Time tracking: Stay late (Procedures after 5:00pm) 16:55:50 Plan of Care:Hemodynamics will remain stable., Cardiac rhythm will remain stable., Comfort level will be maintained., Respiratory function will remain adequate., Patient/ family verbilizes understanding of procedure., Procedure tolerated without complication., Recovers from procedure without complications.. 16:55:58 Patient received from CVICU to IR Alert and oriented. Tansferred to table in Supine position. 16:56:01 Signed procedure consent form obtained from patient. 16:56:10 H&P Date Dictated: 02/03/2020 Within 30 days and on chart.. 16:56:12 Pre-procedure instructions explained to patient. 16:56:12 Pre-op teaching completed and patient verbalized understanding. 16:56:14 Family in waiting room. 16:56:17 Patient NPO since Midnight. 16:56:27 Patient allergic to Penicillins 16:56:34 Is the patient allergic to Iodine/contrast media? No. 16:56:41 Is patient on blood thinner?Yes 16:56:44 - 16:56:48 ----Pre-sedation anethsthesia assessment.---- 16:56:52 Previous problem with sedation/anesthesia? No ? 16:56:54 Snore? Yes 16:56:57 Sleep apnea? Yes 16:56:59 Deviated septum? No 16:57:01 Opens mouth fully? Yes 16:57:03 Sticks out tongue? Yes 16:57:12 Airway obstruction? Yes heart stents 16:57:17 Dentures? No ? 16:57:18 - 16:57:25 Pre procedure: right dorsailis pedis pulse Doppler 16:57:30 Pre procedure: right posterior tibial pulse Doppler 16:57:43 Pre procedure: left dorsailis pedis pulse Doppler 16:58:39 Pre procedure: left posterior tibial pulse Doppler 16:58:52 Right groin area was prepped with betadine and draped in sterile fashio n 16:58:56 - 17:09:14 Vital chart was started 17:09:35 Heparin Flush Bag (1000units/500ml NS) 2 bags added to field was administered by Nikolas Ugalde MD; used for procedure; Verbal order read back and verified. 17:09:48 Lidocaine 1% 20ml vial added to field was administered by Nikolas lara MD; for local anesthetic; Verbal order read back and verified. 17:15:53 Physician arrived 17:15:54 --------ALL STOP TIME OUT------ 17:15:55 Final Timeout: patient, procedure, and site verified with staff and physician. All members of the team are in agreement. 17:16:15 Fire Safety Assessment: A--An alcohol-based skin anteseptic being used preoperatively., C--Open oxygen or nitrous oxide is being used. 17:16:21 2) 60-89 Mildly reduced kidney function, and other findings (as for stage 1) point to kidney disease. 17:16:27 Procedure started. 17:16:27 Full Disclosure recording started 17:16:32 Local anesthetic to right femoral artery with Lidocaine 1% by Nikolas Ugalde MD.INITIAL ACCESS ONLY 17:21:39 Fentanyl 50 mcg I.V. was administered by Ann-Marie Choudhary RN; for back pain; Verbal order read back and verified. 17:22:20 Baseline sample Acquired. 17:26:12 BENTSON 260 wire ([id number]) opened to sterile field. 17:26:15 ROADRUNNER .035 260 glide wire ([id number]) opened to sterile field. 17:26:16 Navicross Support Straight .035 150cm catheter ([id number]) opened to sterile field. 17:29:21 Heparin Bolus 5000 units I.V. was administered by Ann-Marie Choudhary RN; Per physician; Verbal order read back and verified. 17:34:00 COPILOT Valve Control ([id number]) opened to sterile field. 17:34:14 INFLATOR BasixTOUCH (TL7679) opened to sterile field. 17:36:28 Inflate balloon Inflation number: 1 A NANOCROSS ELITE 2 X 120 ([id number]) was prepped and advanced across the Undefined1 , then inflated . 17:36:32 Fentanyl 50 mcg I.V. was administered by Ann-Marie Choudhary RN; for back pain; Verbal order read back and verified. 17:46:43 Indigo System Pump suctin (IAPS2) opened to sterile field. 18:12:59 SHEATH 6FR [place] (LLI312) opened to sterile field. 18:13:00 SHEATH 6FR [place] (PCF612) opened to sterile field. 18:13:12 MYNX BILINGUAL OPERATOR 6FR/7FR (TX5760) opened to sterile field. 18:13:13 MYNX BILINGUAL OPERATOR 6FR/7FR (MC7593) opened to sterile field. 18:16:33 Ancef (1Gm/50ml NS) 1 g I.V.P.B was administered by Ann-Marie Choudhary RN; Per physician; Verbal order read back and verified. 18:22:04 Fentanyl 100 mcg I.V. was administered by Ann-Marie Kenrick RN; for back pain; Verbal order read back and verified. 18:28:16 Procedure ended.(Physican Out) 18:28:29 Fluoroscopy time 16.40 minutes. 18:28:34 Fluoroscopy dose: 268 mGy 18:28:34 Flurop Dose total: 268 18:28:40 Contrast amount:Isovue 300 85ml. 18:28:42 Procedure and supply charges have been captured, reviewed, submitted an d are correct. 18:33:36 Report given to CVICU. 18:33:41 Patient transfered to CVICU with Bed. 18:34:01 Vital chart was stopped Intervention Summary Intervention Notes Time ActionType Lesion and Equipment Used Action# Pressure Duration Attributes 17:36:28 Inflate Undefined1 NANOCROSS ELITE 1 0 00:00 balloon 3 X 120 ([id number]) Device Usage Item Name Manufacture Quantity Catalog Hospital Part Current M inimal Lot# / Number Charge Number Stock Stock Serial# Code Tegaderm 4 x 4 3M 1 1626W [id number] [id number] 543985 5 (1626W) Sterile Cardinal 1 [id number] 500536 202751 5 Angiographic Health Pack Bag Decanter Microtek 1 2001S 167445 02937 563666 5 (2001S) Medical Inc. BENTSON 260 wire Cook Medical 1 [id number] 950678 550193 507775 5 ([id number]) ROADRUNNER .035 [employer] 1 [id number] 556855 130116 712272 5 260 glide wire (G31513) Navicross Terumo 1 [id number] 028319 315368 853725 5 Support Straight .035 150cm catheter (TU03848) COPILOT Valve Bergeron 1 [id number] 376738 292004 051650 5 Control Vascular ([id number]) INFLATOR Merit 1 HO4474 719617 046646 114264 5 Phonitive - Touchalize (TM2244) NANOCROSS ELITE Medtronic 1 [id number] 956818 726618 850211 1 3 X 120 ([id number]) Indigo System Penumbra 1 IAPS2 349051 36433 2877139 1 Pump suctin (IAPS2) SHEATH 6FR Terumo 2 AWZ036 030020 206247 780428 4 0 [place] (JTG080) MYNX BILINGUAL OPERATOR Access 2 OW1017 002030 909022 5 [id number] 6FR/7FR ([id number]) Closure [id number] Signature Audit [place] Stage Time Signature Unsigned Intra-Procedure 02/03/2020 Almaz Hugo 6:33:57 PM RT(R) [facility] [address] [place] [address]
[~2020-02-02 15:45] MED LIST changes: +PLAVIX75 MG PO
[2020-02-02] MEDS ORDERED: MOBIC7.5 MG PO (16:27)
[2020-02-02] MEDS ORDERED: ULTRAM50 MG (16:27)
[2020-02-02 17:17] VITALS: BP 224/104
[2020-02-02 17:53] LABS: BASOPHILS 0.1 % (0-2); EOSINOPHILS 0 % (0-7); HEMATOCRIT 42.6 % (36.0-48.0); HEMOGLOBIN 14.6 g/dL (12-16); IMMATURE GRANULOCYTES 0.2 % (0-5); LYMPHOCYTES 21.1 % (15-50); MCH 30.5 pg (26.0-34.0); MCHC 34.3 g/dL (31.0-37.0); MCV 88.9 fL (80.0-100.0); MEAN PLATELET VOLUME 10.1 fL (7.4-10.4); MONOCYTES 3.8 % (2-11); NEUTROPHILS 74.8 % (40-80); PLATELET COUNT 283 10x3/uL (130-400); RBC 4.79 10x6/uL (4.00-5.40); RDW 13.7 % (11.5-14.5); WBC 12.3 10x3/uL (4.8-10.8)
[2020-02-02 18:00] VITALS: BP 213/99
[2020-02-02 18:04] LABS: PROTIME 13.2 SECONDS (11.6-15.0)
[2020-02-02 18:05] LABS: CALC OSMOLALITY 280 mosm/kg (275-300); CALCIUM 9.3 mg/dL (8.5-10.1); CARBON DIOXIDE 20.2 mmol/L (21.0-32.0); CHLORIDE - SERUM 99 mmol/L (98-107); CREATININE - SERUM 1.2 mg/dL (0.6-1.3); POTASSIUM - SERUM 3.1 mmol/L (3.5-5.1); SODIUM 136 mmol/L (136-145); UREA NITROGEN 11 mg/dL (7-18); eGFR NON AFRICAN AMERICAN 46 mL/min (90-120)
[2020-02-02 18:08] LABS: GLUCOSE 270 mg/dL (74-106)
[2020-02-02 18:19] LABS: ALBUMIN 3.7 g/dL (3.4-5.0); ALKALINE PHOSPHATASE 83 U/L (30-120); ALT (SGPT) 22 U/L (10-68); BILIRUBIN - TOTAL 0.53 mg/dL (0.2-1.3); CKMB 0.5 U/L (0.0-3.6); CREATINE KINASE 127 UL (21-215); MAGNESIUM - SERUM 1.8 mg/dL (1.8-2.4); PROTEIN - SERUM 8.2 g/dL (6.4-8.2); TROPONIN-I < 0.017 ng/mL (0.000-0.060)
--- NOTE | 2020-02-02 20:00 | NUR ---
PROCEDURE CONSENTS SIGNED BY PT
--- NOTE | 2020-02-02 20:05 | NUR ---
IR TEAM AT BEDSIDE TO TAKE PT TO SURGERY
[2020-02-03] VITALS (40 sets, daily range): BP systolic 112–146; BP diastolic 55–99; Ht 166.4 cm; Wt 90.9 kg
--- NOTE | 2020-02-03 00:10 | NUR ---
REC'D PT FROM IR, PT IN CVICU ROOM, MONITORS ON AND WORKING, VITALS STABLE. PT AWAKE AND ALERT, LEFT PEDAL PULSES ABSENT, RIGHT PEDAL PULSES + DOPPLER. CALL LIGHT WITHIN REACH, WILL CONTINUE TO OBSERVE.
[2020-02-03 00:51] LABS: BASOPHILS 0.1 % (0-2); EOSINOPHILS 0 % (0-7); HEMATOCRIT 37.5 % (36.0-48.0); HEMOGLOBIN 12.7 g/dL (12-16); IMMATURE GRANULOCYTES 0.2 % (0-5); LYMPHOCYTES 17.7 % (15-50); MCH 30.5 pg (26.0-34.0); MCHC 33.9 g/dL (31.0-37.0); MCV 89.9 fL (80.0-100.0); MEAN PLATELET VOLUME 9.8 fL (7.4-10.4); MONOCYTES 2.5 % (2-11); NEUTROPHILS 79.5 % (40-80); PLATELET COUNT 239 10x3/uL (130-400); RBC 4.17 10x6/uL (4.00-5.40); RDW 14.1 % (11.5-14.5); WBC 10.1 10x3/uL (4.8-10.8)
[2020-02-03 01:03] LABS: INR 1.19 (0.85-1.17)
[2020-02-03 01:07] LABS: APTT 122.1 SECONDS (22.8-39.4)
--- NOTE | 2020-02-03 03:00 | NUR ---
FAMILY AT BEDSIDE, UPDATE PROVIDED, LABS NOTED. SEE FLOW SHEET FOR FURTHER DETIALS. LEFT PULSE ABSENT, RIGHT DOPPLER. CALL LIGHT WITHIN REACH, WILL CONTINUE TO OBSERVE.
[2020-02-03 06:33] LABS: BASOPHILS 0.1 % (0-2); EOSINOPHILS 0.1 % (0-7); HEMATOCRIT 36.1 % (36.0-48.0); HEMOGLOBIN 12.1 g/dL (12-16); IMMATURE GRANULOCYTES 0.3 % (0-5); LYMPHOCYTES 24.9 % (15-50); MCHC 33.5 g/dL (31.0-37.0); MCV 89.6 fL (80.0-100.0); MEAN PLATELET VOLUME 10.3 fL (7.4-10.4); NEUTROPHILS 67.6 % (40-80); PLATELET COUNT 243 10x3/uL (130-400); RBC 4.03 10x6/uL (4.00-5.40); RDW 14.2 % (11.5-14.5); WBC 9.3 10x3/uL (4.8-10.8)
[2020-02-03 06:51] LABS: INR 1.16 (0.85-1.17); PROTIME 14.7 SECONDS (11.6-15.0)
[2020-02-03 06:58] LABS: APTT 50.8 SECONDS (22.8-39.4)
--- NOTE | 2020-02-03 07:00 | NUR ---
RECEIVED BEDSIDE REPORT ON PATIENT AND ASSUMED CARE. PATIENT RESTING QUIETLY, EASILY AROUSED BY VOICE, VSS. ALERT AND ORIENTED X 4. LAYING FLAT DUE TO LEFT GROIN SHEATH AND RIGHT GROIN SHEATH. LEFT GROIN SHEATH WITH HEPARIN AT 300 UNITS/HR INFUSING, DRESSING C/D/I, NO HEMATOMA NOTED. RIGHT GROIN SHEATH INFUSING WITH CATHFLOW AT 0.5 MG/HR (10 ML/HR) AND HEPARIN AT 300 UNITS/HR. DRESSSING C/D/I NO HEMATOMA NOTED. HOWEVER, CATHFLOW SHEATH IS KINKED AND ALARMING PUMP, DRESSING PEELED BACK AND SMALL TEGADERM DRESSING APPLIED TO CATHETER TO PREVENT KINKING. INFUSING W/O DIFFICULTY AT THIS TIME. RIGHT DP AND PT PULSES +2, LEFT DP AND PT WITH NO FLOW NOTED WITH DOPPLER. LEFT FOOT COOL TO TOUCH WITH DELAYED CAP REFILL APPROXIMATELY 4 SEC. BBS CLEAR AND EQUAL, NONLABORED RR 12, SPO2 - 96% ON 2 LPM VIA NC. CM - NSR RATE OF 70 WITH NO ECTOPY NOTED. IV 20 GA TO RIGHT HAND INFUSING CAREDENE GTT AT 5 MG/HR (25 ML/HR), LEFT FA 20 GA IV INFUSING NS AT 10 ML/HR AND DILAUDID SALES REP PUMP. HEAD TO TOE ASSESSMENT COMPLETE.
[2020-02-03 07:06] LABS: ALBUMIN 2.9 g/dL (3.4-5.0); ANION GAP 14.9 mmol/L (8-16); BILIRUBIN - TOTAL 0.46 mg/dL (0.2-1.3); CALCIUM 8.7 mg/dL (8.5-10.1); CARBON DIOXIDE 24.3 mmol/L (21.0-32.0); CREATININE - SERUM 1.1 mg/dL (0.6-1.3); MAGNESIUM - SERUM 2.1 mg/dL (1.8-2.4); PHOSPHOROUS 4.4 mg/dL (2.5-4.9); POTASSIUM - SERUM 3.2 mmol/L (3.5-5.1)
--- NOTE | 2020-02-03 08:00 | NUR ---
RIGHT GROIN SITE INTACT, INFUSING CATHFLO AT 0.5 MG/HR AND HEPARIN AT 300 UNITS/HR. DRESSING C/D/I, NO HEMATOMA NOTED. RIGHT DP AND PT PULSES +2 PALPABLE, LEFT GROIN SITE INTACT INFUSING HEPARIN AT 300 UNITS/HR, LEFT DP AND PT PULSES ABSENT AND NO DOPPLER FLOW NOTED.
--- NOTE | 2020-02-03 08:44 | NUR ---
NOTED DRESSING TO RIGHT GROIN WITH BLOODY DRAINAGE AND BLOOD BACKED UP INTO HEPARIN GTT LINE, IR NURSE AT ROOM UPDATED AND EXAMINES. NEW DRESSING PLACED. TO RIGHT GROIN. NO HEMATOMA NOTED. LEFT GROIN DRESSING INTACT.
--- NOTE | 2020-02-03 08:55 | NUR ---
RIGHT GROIN SITE DRESSING C/D/I, NO HEMATOMA NOTED, IR NURSES AT BEDSIDE, HEPARIN LINE WITH BLOOD IN TUBING, ADVISED TO FLUSH WITH NS. RIGHT DP AND PT PULSES +2 PALPABLE AND LEFT DP AND PT PULSES ABSENT TO PALPATION, NO DOPPLER FLOW NOTED. VSS.
--- NOTE | 2020-02-03 09:07 | NUR ---
PATIENT ASSISTED WITH BREAKFAST OF CLEAR LIQUIDS ONLY TAKES 20% OF MEAL. GIVEN POTASSIUM REPLACEMENT TO REDRAW K+ AT 1300 HRS.
--- NOTE | 2020-02-03 10:13 | NUR ---
PATIENT VISITING WITH FAMILY AT BEDSIDE. VSS. RIGHT DP AND PT PULSES +2 PALPABLE, LEFT DP AND PT ABSENT AND NO FLOW NOTED WITH DOPPLER. STATES CAN FEEL PRESSURE TO FOOT BUT NOT LIGHT TOUCH, CAN FEEL LIGHT TOUCH DIRECTLY ABOVE FOOT. STATES YESTERDAY SHE WAS NOT ABLE TO FEEL PRESSURE FROM KNEE DOWN. RIGHT GROIN DRESSING INTACT, NO HEMATOMA PRESENT.
--- NOTE | 2020-02-03 10:43 | NUR ---
HEPARIN GTT TO LEFT GROIN SHEATH DISCONTINUED PER ORDER AND NS AT 20 ML/HR STARTED. HEPARIN GTT TO RIGHT GROIN INCREASED PER ORDER FROM 300 UNITS/HR TO 500 UNITS/HR. PATIENT C/O ITCHING TO BACK AND NOSE.
--- NOTE | 2020-02-03 10:50 | NUR ---
LEFT MESSAGE WITH DR. SHANKS REGARDING PATIENT ITCHING.
--- NOTE | 2020-02-03 11:05 | NUR ---
REASSESSMENT COMPLETED. VSS. PATIENT VISITING WITH FAMILY AT ROOM. IVS INFUSING W/O DIFFICULTY. RIGHT GROIN SITE DRESSING C/D/I, NO HEMATOMA, LEFT GROIN SITE DRESSING C/D/I, NO HEMATOMA. RIGHT DP AND PT PULSES PALPABLE +2, LEFT DP AND PT PULSES ABSENT AND FLOW HEARD ON DOPPLER.
--- NOTE | 2020-02-03 12:21 | NUR ---
SPOKE TO DR. SHANKS CAN GIVE PATEINT 12.5 MG TO 25 MG EVERY 4 HRS PRN FOR ITCHING.
--- NOTE | 2020-02-03 12:24 | NUR ---
LAB AT ROOM TO DRAW PTT AND FIBRINOGEN.
[2020-02-03 12:44] LABS: BASOPHILS 0.1 % (0-2); EOSINOPHILS 0.4 % (0-7); HEMATOCRIT 35.4 % (36.0-48.0); HEMOGLOBIN 11.9 g/dL (12-16); IMMATURE GRANULOCYTES 0.2 % (0-5); LYMPHOCYTES 25.7 % (15-50); MCH 30.7 pg (26.0-34.0); MCHC 33.6 g/dL (31.0-37.0); MCV 91.2 fL (80.0-100.0); MEAN PLATELET VOLUME 10.3 fL (7.4-10.4); MONOCYTES 8.3 % (2-11); NEUTROPHILS 65.3 % (40-80); PLATELET COUNT 236 10x3/uL (130-400); RBC 3.88 10x6/uL (4.00-5.40); RDW 14.6 % (11.5-14.5); WBC 8.1 10x3/uL (4.8-10.8)
[2020-02-03 12:53] LABS: INR 1.16 (0.85-1.17); PROTIME 14.7 SECONDS (11.6-15.0)
[2020-02-03 12:55] LABS: APTT 37.8 SECONDS (22.8-39.4)
--- NOTE | 2020-02-03 13:10 | NUR ---
RIGHT GROIN SITE DRESSING C/D/I, NO HEMATOMA NOTED, INFUSING WITHOUT DIFFICULTY. LEFT GROIN SITE DRESSING C/D/I, NO HEMATOMA NOTED. RIGHT DP AND PT PULSES +2, LEFT DP AND PT PULSES ABSENT AND NO DOPPLER FLOW.
--- NOTE | 2020-02-03 13:57 | NUR ---
RIGHT DP AND PT PULSES PRESENT +2, LEFT DP AND PT PULSES NOT PALPABLE AND NO FLOW NOTED ON DOPPLER, FOOT IS WARMER TO TOUCH BUT REMAINS COOL AND CAP REFILL IS NOW APPROXIMATELY 2 SECONDS. VSS.
--- NOTE | 2020-02-03 15:00 | NUR ---
REASSESSMENT COMPLETE. VSS. RIGHT GROIN AND LEFT GROIN SITES INTACT, DRESSINGS C/D/I, NO HEMATOMA. RIGHT DP AND PT PULSES PALPABLE +2, LEFT DP AND PT PULSES ABSENT, NO FLOW NOTED ON DOPPLER. CAP REFIL APPROXIMATELY 2 SECONDS TO LLE.
--- NOTE | 2020-02-03 16:03 | NUR ---
RIGHT DP AND PT PULSES PALPABLE +2, LEFT DP AND PT ABSENT AND NO FLOW ON DOPPLER. CAP REFILL APPROX 2 SECONDS. RIGHT GROIN AND LEFT GROIN SITES C/D/I.
--- NOTE | 2020-02-03 16:43 | NUR ---
PATIENT TO IR WITH IR RNS FOR RELOOK AT LEFT LEG.
--- NOTE | 2020-02-03 18:05 | NUR ---
PATIENT STILL IN IR.
--- NOTE | 2020-02-03 19:00 | NUR ---
PT BACK FROM IR, A/OX4, O2 @ 2L VIA N/C, LEFT FA PIV INTACT WITH HEPARIN GTT @ 1000 UNITS/HR, RIGHT HAND PIV INTACT WITH CARDENE GTT @ 5 MG/HR, BENITA PATENT TO BSD, DRSG INTACT TO BILAT GROIN SITES, INSTRUCTED TO LAY FLAT FOR 6 HRS, LEFT PEDAL PULSE PRESENT AND WEAK, VITALS STABLE
--- NOTE | 2020-02-03 21:00 | NUR ---
PT RESTING QUIETLY, AROUSES EASILY, VITALS STABLE, BILAT GROIN DRSG CDI WITH NO SIGN OF BLEEDING
--- NOTE | 2020-02-03 23:00 | NUR ---
PT AWAKE, WANTING TO GET UP, INSTRUCTED PT SHE HAS TO LAY FLAT FOR 2 MORE HOURS, NO DISTRESS NOTED
[2020-02-04] VITALS (23 sets, daily range): BP systolic 117–163; BP diastolic 45–97
[2020-02-04 00:01] LABS: HEMOGLOBIN 11.7 g/dL (12-16); LYMPHOCYTES 24.5 % (15-50); MCH 30.9 pg (26.0-34.0); MCHC 33.4 g/dL (31.0-37.0); MCV 92.3 fL (80.0-100.0); MEAN PLATELET VOLUME 9.8 fL (7.4-10.4); NEUTROPHILS 67.5 % (40-80); PLATELET COUNT 189 10x3/uL (130-400); RBC 3.79 10x6/uL (4.00-5.40); RDW 14.3 % (11.5-14.5); WBC 7.1 10x3/uL (4.8-10.8)
[2020-02-04 00:08] LABS: INR 1.12 (0.85-1.17); PROTIME 14.3 SECONDS (11.6-15.0)
[2020-02-04 00:16] LABS: APTT 72.5 SECONDS (22.8-39.4)
--- NOTE | 2020-02-04 01:00 | NUR ---
PT AWAKE, HOD ELEVATED 30 DEGREES, C/O SORE THROAT, GIVEN PO WATER, B/P ELEVATED, INCREASED CARDENE GTT TO 6 MG/HR, WILL CONT TO MONITOR
--- NOTE | 2020-02-04 03:00 | NUR ---
PT AWAKE, C/O BEING HOT, BLANKET REMOVED AND ADJUSTED THERMOSTAT IN ROOM, PEDAL PULSES PALPABLE, BILAT GROIN DRESSSINGS CDI WITH NO BLEEDING NOTED
--- NOTE | 2020-02-04 05:10 | NUR ---
PT UP IN CHAIR AT BEDSIDE WITH MIN ASSIST, BATH DONE WITH ASSIST, WATCHING TV WITH NO C/O, DRINKING COFFEE
[2020-02-04 05:36] LABS: BASOPHILS 0.1 % (0-2); EOSINOPHILS 0.6 % (0-7); HEMOGLOBIN 11.8 g/dL (12-16); IMMATURE GRANULOCYTES 0.1 % (0-5); LYMPHOCYTES 29.8 % (15-50); MCH 30.2 pg (26.0-34.0); MCHC 32.8 g/dL (31.0-37.0); MCV 92.1 fL (80.0-100.0); MEAN PLATELET VOLUME 10.3 fL (7.4-10.4); MONOCYTES 4.9 % (2-11); NEUTROPHILS 64.5 % (40-80); RBC 3.91 10x6/uL (4.00-5.40); RDW 14.7 % (11.5-14.5)
[2020-02-04 05:38] LABS: PLATELET COUNT 228 10x3/uL (130-400); WBC 9.4 10x3/uL (4.8-10.8)
[2020-02-04 06:19] LABS: BILIRUBIN - TOTAL 0.91 mg/dL (0.2-1.3); CALCIUM 8.6 mg/dL (8.5-10.1); CARBON DIOXIDE 23.7 mmol/L (21.0-32.0); CREATININE - SERUM 1.1 mg/dL (0.6-1.3); MAGNESIUM - SERUM 2.1 mg/dL (1.8-2.4); PROTEIN - SERUM 7.2 g/dL (6.4-8.2)
[2020-02-04 06:24] LABS: PHOSPHOROUS 2.6 mg/dL (2.5-4.9)
[2020-02-04 06:25] LABS: ANION GAP 13.2 mmol/L (8-16); POTASSIUM - SERUM 3.9 mmol/L (3.5-5.1)
--- NOTE | 2020-02-04 07:00 | NUR ---
RECEIVED BEDSIDE REPORT AND ASSUMED CARE OF PATIENT. PATIENT RESTING QUIETLY IN BED, EASILY AROUSED BY VOICE, ALERT AND ORIENTED X 4, C/O ABDOMINAL PAIN 3/10 TO UPPER ABDOMEN, PASSING GAS BUT HAS NOT BEEN ABLE TO HAVE A BM. JOY CATH IN PLACE WITH CLEAR YELLOW UOP NOTED. RIGHT GROIN AND LEFT GROIN SITE DRESSING C/D/I AND NO HEMATOMA NOTED. DISTAL DP AND PT PULSES PRESENT BILATERAL FEET, +2 TO RIGHT FOOT AND +1 TO LEFT FOOT. IV 20 GA TO RIGHT HAND AND IV 20 GA TO LEFT FA BOTH INFUSING WITH NO S/S OF INFILTRATION NOTED. NS AT 10 ML/HR, CARDENE AT 6 MG/HR (30 ML/HR), HEPARIN AT 1100 UNITS/HR (11 ML/HR) AND DILAUDID SKINNER PELTS 0.2 MG/Q10 MIN, WITH 4 MG/4HR, WITH A 0.4 MG BOLUS Q3H PRN. BBS - CLEAR AND EQUAL, DIMINISHED IN THE BASES. VSS. SPO2 - 97% ON 2 LPM VIA NC. CM - NSR RATE OF 76 WITH NO ECTOPY NOTED. HEAD TO TOE ASSESSMENT COMPLETED.
--- NOTE | 2020-02-04 09:54 | NUR ---
PATIENT RESTING QUIETLY IN BED. VSS.
--- NOTE | 2020-02-04 10:52 | NUR ---
REASSESSMENT COMPLETED. VSS. LEFT PT AND DP PULSES +1, RIGHT PT AND DP PULSES +2.
--- NOTE | 2020-02-04 11:07 | NUR ---
PATIENT ASSISTED UP TO BEDSIDE COMMODE FOR BM. ASSISTED TO BEDSIDE CHAIR POST BM.
--- NOTE | 2020-02-04 12:57 | NUR ---
SPOKE TO DR. SHANKS TO RESTART PATIENTS HOME NORVASC 10 MG DAILY AND STOP CARDENE GTT, ALSO TO GIVE 5 MG OF COUMADIN FOR ANTICOAGULATION AND STOP HEPARIN GTT.
--- NOTE | 2020-02-04 15:00 | NUR ---
REASSESSMENT COMPLETED VSS. LEFT DP AND PT PULSES PALPABLE +1. NO NEEDS AT THIS TIME.
--- NOTE | 2020-02-04 19:30 | NUR ---
PT A/OX4, LUNGS CLEAR, RIGHT PIV INTACT WITH NS @ KVO AND DILAUDID ENTERPRISE SOFTWARE ENGINEER, JOY PATENT TO BSD, DRSG INTACT TO BILAT GROIN, NO C/O AT THIS TIME, VITALS STABLE
--- NOTE | 2020-02-04 21:00 | NUR ---
PT AWAKE, FSBS 128, ELEVATED LEFT LEG ON PILLOW, NO C/O
--- NOTE | 2020-02-04 21:38 | MORECARE ---
CASE MANAGEMENT DISCHARGE SUMMARY PATIENT: MADAY ROCHE UNIT: [id number] ADM DATE: 02/02/20 AGE: 74 : [birth year] SEX: F [facility] AUTHOR: ELAINE MARIE PHYSICIAN: REFERRING PHYSICIAN: KATELIN FIEN MD DATE OF SERVICE: 02/04/20 Discharge Plan Patient Name: MADAY ROCHE [facility] [facility] 1945 Planned Disposition: Anticipated Discharge Date: Discharge Date: Expected LOS: Initial Reviewer: [email or web address] Initial Review Date: 02/03/2020 Generated: 02/04/20 10:37 pm DCPIA - Discharge Planning Initial Assessment Updated by [email or web address]: Denise Baron on 02/04/20 9:36 pm * Is the patient Alert and Oriented? Yes * How many steps to enter\exit or inside your home? 02/15 * PCP CASSIDY * Pharmacy [facility] * Preadmission Environment Home Alone * ADLs Independent * Equipment Cane * List name and contact numbers for known caregivers / representatives who currently or will assist patient after discharge: ALBERT DORAN - DAUGHTER- [phone] * Verbal permission to speak to the caregivers and representatives has been obtained from the patient. Yes * Community resources currently utilized None * Additional services required to return to the preadmission environment? No * Can the patient safely return to the preadmission environment? Yes * Has this patient been hospitalized within the prior 30 days at any hospital? No External Providers External Provider: [facility] Next Contact Date: Service Request Date: Service Type: Resolution: Reviewer: Comments: External Provider: Stephanie Next Contact Date: Service Request Date: Service Type: Resolution: Reviewer: Comments: Patient Name: MADAY ROCHE Page [phone] at 2138 All edits/amendments must be made on the electronic document DICTATION DATE: 02/04/202136 MULTI PUNCH OPERATOR: MARYBETH 02/04/202136 RPT#: [id number] DC DATE: STATUS: ADM IN [facility] [address] [place] [address] END OF REPORT
--- NOTE | 2020-02-04 21:44 | MORECARE ---
CASE MANAGEMENT DISCHARGE SUMMARY PATIENT: MADAY ROCHE UNIT: [id number] ADM DATE: 02/02/20 AGE: 74 : 41 SEX: F ROOM/BED: [facility] AUTHOR: FRANK,DOC PHYSICIAN: REFERRING PHYSICIAN: KATELIN FINE MD DATE OF SERVICE: 02/04/20 Discharge Plan Patient Name: MADAY ROCHE Facility: [facility]:[place] : 1945 Planned Disposition: Anticipated Discharge Date: Discharge Date: Expected LOS: Initial Reviewer: [email or web address] Initial Review Date: 02/03/2020 Generated: 02/04/20 10:44 pm Comments DCP- Discharge Planning Updated by [email or web address]: Denise Baron on 02/04/20 8:[address] Patient Name: MADAY ROCHE Admission Status: ER Accout number: [id number] Admission Date: 02-02-2020 : 1945 Admission Diagnosis: Attending: KATELIN CARMONA Current LOS: 2 Anticipated DC Date: Planned Disposition: Primary Insurance: [employer] CHO[employer] PPO MCR ADVANT Discharge Planning Comments: CM met with patient to complete initial dc planning assessment. CM educated patient on the CM role and verbal consent given by patient to complete assessment. Patient lives at home alone where she is independent with her care. At discharge patient plans to return home and feels this is a safe discharge. CM discussed availability of home health, rehab services, and medical equipment. Her daughter will be her semi driver home. Physical therapy recommends a RW and patient is requesting a shower chair. ARUNA signed for [employer] and orders faxed. Patient also requesting HH upon discharge ARUNA signed [facility] notified and orders faxed. CM will continue to follow and will assist as needed with dc plans/needs. Beck Tender: Denise Baron DCPIA - Discharge Planning Initial Assessment Updated by [email or web address]: Denise Baron on 02/04/20 9:36 pm * Is the patient Alert and Oriented? Yes * How many steps to enter\exit or inside your home? 02/15 * PCP CASSIDY * [facility] * Preadmission Environment Home Alone * ADLs Independent * Equipment Cane * List name and contact numbers for known caregivers / representatives who currently or will assist patient after discharge: ALBERT DORAN - DAUGHTER- [phone] * Verbal permission to speak to the caregivers and representatives has been obtained from the patient. Yes * Community resources currently utilized None * Additional services required to return to the preadmission environment? No * Can the patient safely return to the preadmission environment? Yes * Has this patient been hospitalized within the prior 30 days at any hospital? No Last DP export: 02/04/20 8:38 pm Patient Name: MADAY ROCHE Page 33712 at 2144 All edits/amendments must be made on the electronic document DICTATION DATE: 02/04/202143 CAPABILITY LEAD: MARYBETH 02/04/202143 RPT#: [id number] DC DATE: STATUS: ADM IN [address] [place] [address] END OF REPORT
[2020-02-05] VITALS (23 sets, daily range): BP systolic 108–194; BP diastolic 49–142
--- NOTE | 2020-02-05 00:05 | NUR ---
pt spo2 in 80's, noted to have sleep apnea, placed on 2l o2 via n/c, spo2 came up into 90's, will cont to monitor
--- NOTE | 2020-02-05 01:12 | NUR ---
pt sleeping with no distress noted, vitals stable
--- NOTE | 2020-02-05 05:20 | NUR ---
pt up to chair at bedside, bathed with assist, watching tv and drinking coffee with no c/o
[2020-02-05 05:56] LABS: BASOPHILS 0.1 % (0-2); HEMATOCRIT 34.6 % (36.0-48.0); HEMOGLOBIN 11.4 g/dL (12-16); IMMATURE GRANULOCYTES 0.3 % (0-5); LYMPHOCYTES 38.9 % (15-50); MCH 30.2 pg (26.0-34.0); MCHC 32.9 g/dL (31.0-37.0); MCV 91.5 fL (80.0-100.0); MEAN PLATELET VOLUME 10.2 fL (7.4-10.4); MONOCYTES 5.2 % (2-11); NEUTROPHILS 54.5 % (40-80); PLATELET COUNT 234 10x3/uL (130-400); RBC 3.78 10x6/uL (4.00-5.40); RDW 14.4 % (11.5-14.5); WBC 11.5 10x3/uL (4.8-10.8)
[2020-02-05 06:13] LABS: ALBUMIN 2.9 g/dL (3.4-5.0); ANION GAP 12.9 mmol/L (8-16); BILIRUBIN - TOTAL 0.76 mg/dL (0.2-1.3); CALCIUM 9.1 mg/dL (8.5-10.1); CARBON DIOXIDE 23.8 mmol/L (21.0-32.0); CREATININE - SERUM 0.9 mg/dL (0.6-1.3); MAGNESIUM - SERUM 2.2 mg/dL (1.8-2.4); PHOSPHOROUS 2.3 mg/dL (2.5-4.9); POTASSIUM - SERUM 3.7 mmol/L (3.5-5.1); PROTEIN - SERUM 7.3 g/dL (6.4-8.2)
--- NOTE | 2020-02-05 07:20 | NUR ---
AWAKES EASILY UP IN CHAIR AT BEDSIDE. SKIN WARM AND DRY. BILATERAL GROIN DRESSINGS DRY AND INTACT. NO SWELLING NOTED. DENIES PAIN. WARM BLANKET PROVIDED. IV RIGHT HAND WITHOUT REDNESS OR SWELLING INFUSING WITH NS AT KVO. JOY CATH PATENT DRAINING CLEAR ABRAHAM URINE. MONITOR SR
--- NOTE | 2020-02-05 08:00 | NUR ---
BREAKFAST TRAY SERVED ATE WELL.
--- NOTE | 2020-02-05 08:33 | NUR ---
PHYSICAL THERAPY HERE AMBULATING IN [place] WITH WALKER. FAMILY HERE UPDATE GIVEN
--- NOTE | 2020-02-05 08:45 | NUR ---
JOY CATH REMOVED. PATIENT WANTING TO GO HOME TODAY.UNDERSTANDS SHE TO VOID BEFORE GOING HOME.
--- NOTE | 2020-02-05 09:13 | NUR ---
IN BED RESTING NO DISTRESS. PO MEDS TAKEN WITHOUT DIFFICULTY
--- NOTE | 2020-02-05 10:20 | NUR ---
UP TO BATHROOM. SOME INCONT OF BLADDER, PATIENT STATES THIS IS NORMAL FOR HER. VOIDED WITHOUT DIFFICULTY. AMBULATED BACK TO BED. PATIENT DOES GET SHORT OF BREATH WHEN AMBULATING.
--- NOTE | 2020-02-05 11:30 | NUR ---
UP TO BATHROOM. TOLERATES FAIR, STILL BECOMES SHORT OF BREATH WITH AMBULATING. UP IN CHAIR AT BEDSIDE. LUNCH TRAY SERVED. APPETITE FAIR. VOIDING WITHOUT DIFFICULTY. PASSING ALOT OF RECTAL GAS
[2020-02-05 13:17] LABS: INR 0.99 (0.85-1.17); PROTIME 13.1 SECONDS (11.6-15.0)
--- NOTE | 2020-02-05 13:18 | NUR ---
DR. SHANKS HERE ORDERS NOTED. PATIENT STILL UP IN CHAIR VISITORS HERE.
--- NOTE | 2020-02-05 14:14 | NUR ---
AMBULATED TO BED. TIRED AND KNEES HURTING. HEAD OF BED ELEVATED 20 DEGREES. NURSE CALL LIGHT IN HAND. TOLERATED FAIR.
--- NOTE | 2020-02-05 19:15 | NUR ---
PT TEMP 100.7, SHAKING, C/O BEING COLD, HR 110, PAGED YONI SALEHN, COLLECTED I/O URINE SPECIMEN, ORDERS RECIEVED FROM COTTAGE ATTENDANT, ASSESSMENT COMPLETED, WILL CONT TO MONITOR
--- NOTE | 2020-02-05 21:00 | NUR ---
PT AROUSES EASILY, FSBS TREATED WITH 4 UNITS HUMALOG, IV ABX STARTED, NO DISTRESS NOTED
[2020-02-05 22:02] LABS: BILIRUBIN NEGATIVE (NEGATIVE); GLUCOSE NEGATIVE (NEGATIVE); KETONE NEGATIVE (NEGATIVE); NITRITE NEGATIVE (NEGATIVE); UROBILINOGEN NORMAL (NORMAL)
[2020-02-05 22:04] LABS: BACTERIA FEW /hpf (NEGATIVE); RED CELLS - URINE OCC /hpf (0-5); WHITE CELLS - URINE RARE /hpf (NEGATIVE)
--- NOTE | 2020-02-05 23:00 | NUR ---
PT AROUSES EASILY, TEMP 102, GIVEN TYLENOL PO, ENCOURAGED FLIUDS, WILL CONT TO MONITOR
[2020-02-06] VITALS (15 sets, daily range): BP systolic 118–185; BP diastolic 51–90
--- NOTE | 2020-02-06 01:30 | NUR ---
PT SLEEPING WITH NO DISTRESS, VITALS STABLE
[2020-02-06 05:26] LABS: BASOPHILS 0.1 % (0-2); EOSINOPHILS 0.1 % (0-7); HEMATOCRIT 32.1 % (36.0-48.0); HEMOGLOBIN 10.6 g/dL (12-16); IMMATURE GRANULOCYTES 0.4 % (0-5); LYMPHOCYTES 15.6 % (15-50); MCV 90.9 fL (80.0-100.0); MEAN PLATELET VOLUME 9.7 fL (7.4-10.4); MONOCYTES 3.3 % (2-11); NEUTROPHILS 80.5 % (40-80); PLATELET COUNT 220 10x3/uL (130-400); RBC 3.53 10x6/uL (4.00-5.40); RDW 14.2 % (11.5-14.5); WBC 13.6 10x3/uL (4.8-10.8)
[2020-02-06 05:49] LABS: ALBUMIN 2.4 g/dL (3.4-5.0); BILIRUBIN - TOTAL 0.66 mg/dL (0.2-1.3); CALCIUM 8.9 mg/dL (8.5-10.1); CARBON DIOXIDE 26.5 mmol/L (21.0-32.0); CREATININE - SERUM 0.9 mg/dL (0.6-1.3); MAGNESIUM - SERUM 1.8 mg/dL (1.8-2.4); PHOSPHOROUS 2.7 mg/dL (2.5-4.9); POTASSIUM - SERUM 3.5 mmol/L (3.5-5.1); PROTEIN - SERUM 6.7 g/dL (6.4-8.2)
--- NOTE | 2020-02-06 16:49 | NUR ---
REPORT CALLED TO RECEIVING NURSE.
--- NOTE | 2020-02-06 17:25 | NUR ---
TRANSFERRED TO ROOM 2102 VIA WHEELCHAIR. RECEIVING NURSE IN ROOM.
--- NOTE | 2020-02-06 17:27 | NUR ---
PT ARRIVED TO THE FLOOR VIA WHEELCHAIR. AXO. DENIES NEEDS OR PAIN AT THIS TIME. CALL LIGHT WITHIN REACH. ORIENTED TO ROOM. DAUGHTER AT BEDSIDE. LRFT FOREARM IV NOTED, SL. BED IN LOWEST POSITION. BED RAILS UP X2. WALKER AT BEDSIDE. PT INSTRUCTED TO CALL FOR ASSISTANCE GETTING UP. WILL CONTINUE TO MONITOR.
--- NOTE | 2020-02-06 19:10 | NUR ---
BEDSIDE REPORT RECEIVED FROM DAY SHIFT, PT CARE ASSUMED. INTRODUCED SELF AND WROTE NAME ON BOARD. PT SITTING UP IN BED WATCHING TV, AAOX4. DENIES ANY NEEDS AT THIS TIME. BED IN LOWEST POSITION, SR X1, CALL LIGHT WITHIN REACH. WILL CONTINUE TO MONITOR.
[2020-02-07 04:45] LABS: BASOPHILS 0.1 % (0-2); EOSINOPHILS 0.9 % (0-7); HEMATOCRIT 31.8 % (36.0-48.0); HEMOGLOBIN 10.5 g/dL (12-16); IMMATURE GRANULOCYTES 0.3 % (0-5); LYMPHOCYTES 24.6 % (15-50); MCH 30.1 pg (26.0-34.0); MCV 91.1 fL (80.0-100.0); MEAN PLATELET VOLUME 10.7 fL (7.4-10.4); MONOCYTES 4.3 % (2-11); NEUTROPHILS 69.8 % (40-80); RBC 3.49 10x6/uL (4.00-5.40); RDW 14.2 % (11.5-14.5); WBC 13.4 10x3/uL (4.8-10.8)
[2020-02-07 04:58] LABS: PLATELET COUNT 273 10x3/uL (130-400)
[2020-02-07 05:11] LABS: INR 1.25 (0.85-1.17); PROTIME 15.6 SECONDS (11.6-15.0)
[2020-02-07 05:23] LABS: ALBUMIN 2.4 g/dL (3.4-5.0); ANION GAP 10.7 mmol/L (8-16); BILIRUBIN - TOTAL 0.42 mg/dL (0.2-1.3); CALCIUM 9.2 mg/dL (8.5-10.1); CARBON DIOXIDE 27.6 mmol/L (21.0-32.0); CREATININE - SERUM 0.9 mg/dL (0.6-1.3); MAGNESIUM - SERUM 1.8 mg/dL (1.8-2.4); PHOSPHOROUS 2.8 mg/dL (2.5-4.9); POTASSIUM - SERUM 3.3 mmol/L (3.5-5.1)
--- NOTE | 2020-02-07 07:45 | NUR ---
RECIEVED REPORT. PATIENT IS AWAKE AND ALERT AND DENIES ANY NEEDS AT THIS TIME.
[2020-02-07 08:34] VITALS: BP 150/80
--- NOTE | 2020-02-07 08:42 | MORECARE ---
CASE MANAGEMENT DISCHARGE SUMMARY PATIENT: MADAY ROCHE UNIT: [id number] ADM DATE: 02/02/20 AGE: 74 : 43 SEX: F ROOM/BED: D.6596 AUTHOR: FRANK,DOC PHYSICIAN: REFERRING PHYSICIAN: KATELIN FINE MD DATE OF SERVICE: 02/07/20 Discharge Plan Patient Name: MADAY ROCHE Facility: [facility]:[place] : 1945 Planned Disposition: Anticipated Discharge Date: Discharge Date: Expected LOS: Initial Reviewer: [email or web address] Initial Review Date: 02/03/2020 Generated: 02/07/20 9:42 am Comments DCP- Discharge Planning Updated by [email or web address]: Denise Baron on 02/04/20 7:[address] Patient Name: MADAY ROCHE Admission Status: ER Accout number: [id number] Admission Date: 02-02-2020 : 1945 Admission Diagnosis: Attending: KATELIN CARMONA Current LOS: 2 Anticipated DC Date: Planned Disposition: Primary Insurance: [employer] CHO[employer] PPO MCR ADVANT Discharge Planning Comments: CM met with patient to complete initial dc planning assessment. CM educated patient on the CM role and verbal consent given by patient to complete assessment. Patient lives at home alone where she is independent with her care. At discharge patient plans to return home and feels this is a safe discharge. CM discussed availability of home health, rehab services, and medical equipment. Her daughter will be her commercial truck driver home. Physical therapy recommends a RW and patient is requesting a shower chair. ARUNA signed for [facility] and orders faxed. Patient also requesting HH upon discharge ARUNA signed [facility] notified and orders faxed. CM will continue to follow and will assist as needed with dc plans/needs. Seasonal Tax Preparer: Denise Baron DCPIA - Discharge Planning Initial Assessment Updated by [email or web address]: Denise Baron on 02/04/20 9:36 pm * Is the patient Alert and Oriented? Yes * How many steps to enter\exit or inside your home? 02/15 * PCP CASSIDY * [facility]acy [facility] * Preadmission Environment Home Alone * ADLs Independent * Equipment Cane * List name and contact numbers for known caregivers / representatives who currently or will assist patient after discharge: ALBERT DORAN - DAUGHTER- [phone] * Verbal permission to speak to the caregivers and representatives has been obtained from the patient. Yes * Community resources currently utilized None * Additional services required to return to the preadmission environment? No * Can the patient safely return to the preadmission environment? Yes * Has this patient been hospitalized within the prior 30 days at any hospital? No Last DP export: 02/04/20 7:44 pm Patient Name: MADAY ROCHE Page [id number] at 0842 All edits/amendments must be made on the electronic document DICTATION DATE: 02/07/20841 SHADOW GRAPH WEIGHT OPERATOR: MARYBETH 02/07/20841 RPT#: [id number] DC DATE: STATUS: ADM IN [facility] [address] [place] [address] END OF REPORT
--- NOTE | 2020-02-07 11:46 | NUR ---
REHAB PRESCREENING Rehab referral received and chart reviewed. This patient has [employer] as his insurance provider which requires a prior authorization for Acute Inpatient Rehab. OT evaluation has been ordered but not completed as of yet. Rehab will continue to follow for OT eval and begin pre-auth as soon as possible. Thank you for this referral! Sherry Ray, HAND MOLDER AND CASTER Rehab PD
[2020-02-07 12:00] VITALS: BP 147/80
[2020-02-07 15:45] VITALS: BP 158/74
--- NOTE | 2020-02-07 20:43 | NUR ---
OT NOTE: PT REQUIRED SUPV WITH BED MOB TASKS. PT REQUIRED SUPV WITH SIT TO STAND. PT EXHIBITED LITTLE DIFFICULTY WITH THESE TASKS. PT COMPLETED FACE WASH AT [facility]OB WITH SETUP. [phone] THANK YOU, LUCY CONCEPCION
[2020-02-07 20:48] VITALS: BP 146/91
--- NOTE | 2020-02-07 20:48 | NUR ---
EVENING ROUNDS COMPLETED. VSS, AAOX4, NO S/S OF DISTRESS. PT DENIES ANY PAIN AT THIS TIME. ASSIST PT TO RESTROOM. FSBS 118. NO INSULIN GIVEN PER SLIDING SCALE. NS @ 20MLS/HR. PT DENIES ANY FURTHER NEEDS AT THIS TIME. WILLCPOC. CL WITHIN [facility], BED IN LOW, SR UP X2.
[2020-02-08 00:12] VITALS: BP 155/85
[2020-02-08 03:45] VITALS: BP 162/80
[2020-02-08 04:46] LABS: HEMATOCRIT 31.9 % (36.0-48.0); HEMOGLOBIN 10.8 g/dL (12-16); MCH 30.6 pg (26.0-34.0); MCHC 33.9 g/dL (31.0-37.0); MCV 90.4 fL (80.0-100.0); MEAN PLATELET VOLUME 10.6 fL (7.4-10.4); RBC 3.53 10x6/uL (4.00-5.40); RDW 14.3 % (11.5-14.5); WBC 11.2 10x3/uL (4.8-10.8)
[2020-02-08 05:10] LABS: ANION GAP 12.9 mmol/L (8-16); CALCIUM 9.5 mg/dL (8.5-10.1); CARBON DIOXIDE 27.6 mmol/L (21.0-32.0); CREATININE - SERUM 0.9 mg/dL (0.6-1.3); POTASSIUM - SERUM 3.5 mmol/L (3.5-5.1)
[2020-02-08 09:31] VITALS: BP 132/64
[2020-02-08 09:40] LABS: INR 1.15 (0.85-1.17); PROTIME 14.6 SECONDS (11.6-15.0)
--- NOTE | 2020-02-08 10:55 | NUR ---
I have reviewed this patient and I concur with the Shift Assessment completed by the Licensed Practical Nurse today this shift.
[2020-02-08] MEDS ORDERED: ELIQUIS5 MG PO ×2 (11:05→11:07)
--- NOTE | 2020-02-08 11:22 | NUR ---
UPON ADMIT, PATIENT HAS NOT HAD A FLU SHOT. WHEN QUESTIONED FOR DISCHARGE, SHE REFUSED.
--- NOTE | 2020-02-08 12:44 | MORECARE ---
CASE MANAGEMENT DISCHARGE SUMMARY PATIENT: MADAY ROCHE UNIT: [id number] ADM DATE: 02/02/20 AGE: 74 : 43 SEX: F ROOM/BED: D.2100 AUTHOR: FRANK,DOC PHYSICIAN: REFERRING PHYSICIAN: KATELIN FINE MD DATE OF SERVICE: 02/08/20 Discharge Plan Patient Name: MADAY ROCHE Facility: [facility]:[place] : 1945 Planned Disposition: Home with Home Health Anticipated Discharge Date: 02/08/20 Discharge Date: Expected LOS: 6 Initial Reviewer: [email or web address] Initial Review Date: 02/03/2020 Generated: 02/08/20 1:43 pm DCP- Discharge Planning Updated by [email or web address]: Denise Baron on 02/04/20 7:[address] Patient Name: MADAY ROCHE Admission Status: ER Accout number: [id number] Admission Date: 02-02-2020 : 1945 Admission Diagnosis: Attending: KATELIN CARMONA Current LOS: 2 Anticipated DC Date: Planned Disposition: Primary Insurance: [employer] CHOICE PPO MCR [facility] Discharge Planning Comments: CM met with patient to complete initial dc planning assessment. CM educated patient on the CM role and verbal consent given by patient to complete assessment. Patient lives at home alone where she is independent with her care. At discharge patient plans to return home and feels this is a safe discharge. CM discussed availability of home health, rehab services, and medical equipment. Her daughter will be her driver/merchandiser home. Physical therapy recommends a RW and patient is requesting a shower chair. ARUNA signed for [facility] and orders faxed. Patient also requesting HH upon discharge ARUNA signed [facility] notified and orders faxed. CM will continue to follow and will assist as needed with dc plans/needs. Softwood Faller: Denise Baron DCPIA - Discharge Planning Initial Assessment Updated by [email or web address]: Denise Baron on 02/04/20 9:36 pm * Is the patient Alert and Oriented? Yes * How many steps to enter\exit or inside your home? 02/15 * PCP CASSIDY * Pharmacy [facility] * Preadmission Environment Home Alone * ADLs Independent * Equipment Cane * List name and contact numbers for known caregivers / representatives who currently or will assist patient after discharge: ALBERT DORAN - DAUGHTER- [phone] * Verbal permission to speak to the caregivers and representatives has been obtained from the patient. Yes * Community resources currently utilized None * Additional services required to return to the preadmission environment? No * Can the patient safely return to the preadmission environment? Yes * Has this patient been hospitalized within the prior 30 days at any hospital? No Last DP export: 02/07/20 7:42 am Patient Name: MADAY ROCHE Page 17989 at 1244 All edits/amendments must be made on the electronic document DICTATION DATE: 02/08/201242 REFERRAL SPECIALIST: MARYBETH 02/08/201242 RPT#: [id number] DC DATE: STATUS: ADM IN [facility] [address] [place] [address] END OF REPORT
--- NOTE | 2020-02-08 12:52 | MORECARE ---
CASE MANAGEMENT DISCHARGE SUMMARY PATIENT: MADAY ROCHE UNIT: [id number] ADM DATE: 02/02/20 AGE: 74 : 43 SEX: F ROOM/BED: D.2034 AUTHOR: FRANK,DOC PHYSICIAN: REFERRING PHYSICIAN: KATELIN FINE MD DATE OF SERVICE: 02/08/20 Discharge Plan Patient Name: MADAY ROCHE Facility: [facility]:[place] : 1945 Planned Disposition: Home with Home Health Anticipated Discharge Date: 02/08/20 Discharge Date: Expected LOS: 6 Initial Reviewer: [email or web address] Initial Review Date: 02/03/2020 Generated: 02/08/20 1:51 pm Comments DCP- Discharge Planning Updated by [email or web address]: Jim Bustos on 02/08/20 11:[address] Patient Name: MADAY ROCHE Encounter No: [id number] : 1945 Primary Insurance: [email or web address] PPO MCR ADVANT Anticipated DC Date: 02-08-2020 Planned Disposition: Home with Home Health External Planned Provider: [facility] DCP follow-up note: CM RECEIVED INSTRUCTIONS FROM DR. THOMPSON TO DETERMINE IF ELIQUIS IS COVERED WITH PT'S INSURANCE. CM RECEIVED INPATIENT REHAB PRESCREENING ORDER. CM SPOKE TO PT IN ROOM WHO REPORTS SHE DOES NOT WANT REHAB AND HER DAUGHTER IS IN AGREEMENT WITH GOING HOME WITH HOME HEALTH. CHOICE HAS ALREADY BEEN SIGNED FOR [facility]. PT DOES NOT HAVE HER INSURANCE CARD TO PROVIDE RX NUMBER FOR CM TO CALL. IMPORTANT MESSAGE FROM MEDICARE PROVIDED AND EXPLAINED. PT'S DAUGHTER TO TRANSPORT HOME AT DISCHARGE TODAY. CM CALLED [facility], SPOKE TO SCOTT WHO INFORMED CM THAT ELIQUIS IS COVERED UNDER PT'S PRESCRIPTION DRUG PLAN AND WILL BE ONLY $8.95 FOR THREE MONTH SUPPLY IF ORDERED THROUGH [facility] MAIL ORDER RX. LEE MIRANDA NOTIFIED. PT AND DAUGHTER NOTIFIED IN ROOM. PT AND DAUGHTER IN AGREEMENT WITH DISCHARGE HOME TODAY ON ELIQUIS AND WITH HOME HEALTH. CM CALLED [facility], , SPOKE TO DANAE WHO REPORTS RECEIVING REFERRAL INFORMATION FROM DIANA BARON TODAY AND WILL PLACE PT ON SCHEDULE FOR ADMIT OF HOME HEALTH CARE. CM FAXED DISCHARGE INFORMATION TO [facility] AT [phone]. INSPECTOR TECHNICIAN NURSE NOTIFIED. Jim Bustos, CASE MANAGEMENT DCP- Discharge Planning Updated by [email or web address]: Denise Baron on 02/04/20 7:[address] Patient Name: MADAY ROCEH Admission Status: ER Accout number: [id number] Admission Date: 02-02-2020 : 1945 Admission Diagnosis: Attending: KATELIN CARMONA Current LOS: 2 Anticipated DC Date: Planned Disposition: Primary Insurance: [employer] CHOICE PPO MCR ADVANT Discharge Planning Comments: CM met with patient to complete initial dc planning assessment. CM educated patient on the CM role and verbal consent given by patient to complete assessment. Patient lives at home alone where she is independent with her care. At discharge patient plans to return home and feels this is a safe discharge. CM discussed availability of home health, rehab services, and medical equipment. Her daughter will be her dairy truck driver home. Physical therapy recommends a RW and patient is requesting a shower chair. ARUNA signed for [facility] and orders faxed. Patient also requesting HH upon discharge ARUNA signed [facility] notified and orders faxed. CM will continue to follow and will assist as needed with dc plans/needs. Head Packager: Denise Baron DCPIA - Discharge Planning Initial Assessment Updated by [email or web address]: Denise Baron on 02/04/20 9:36 pm * Is the patient Alert and Oriented? Yes * How many steps to enter\exit or inside your home? 02/15 * PCP CASSIDY * [facility] * Preadmission Environment Home Alone * ADLs Independent * Equipment Cane * List name and contact numbers for known caregivers / representatives who currently or will assist patient after discharge: ALBERT DORAN - DAUGHTER- [phone] * Verbal permission to speak to the caregivers and representatives has been obtained from the patient. Yes * Community resources currently utilized None * Additional services required to return to the preadmission environment? No * Can the patient safely return to the preadmission environment? Yes * Has this patient been hospitalized within the prior 30 days at any hospital? No External Providers External Provider: [facility] Next Contact Date: 02/08/2020 Service Request Date: Service Type: Resolution: Reviewer: Comments: Last DP export: 02/08/20 11:44 a Patient Name: MADAY ROCHE Page [phone] at 1252 All edits/amendments must be made on the electronic document DICTATION DATE: 02/08/20 1251 CANE FLUME WATCHER: MARYBETH 02/08/20 1251 RPT#: [id number] DC DATE: STATUS: ADM IN [facility] [address] [place] [address] END OF REPORT
--- NOTE | 2020-02-08 12:53 | NUR ---
PT DISCHARGED HOME VIA WHEELCHAIR WITH FAMILY. PIV REMOVED WITH CATHETER TIP FULLY INTACT. PT SIGNED PROPER DISCHARGE INSTRUCTIONS AND REMOVED ALL VALUABLES FROM THE ROOM.
== END 2020-02-08 12:54 | disposition home health service (06) | DRG 300 ==
LOC: D.ER 15:45 → D.CVICU 18:34 → D.M2 02-06 17:24
PROVIDERS: Emergency Medicine; General Practice; Internal Medicine Nephrology; ADMIT Family Medicine; ATTEND Family Medicine
DX: I77.1 Stricture of artery (principal); I16.1 Hypertensive emergency; E87.6 Hypokalemia; R73.9 Hyperglycemia, unspecified; E78.5 Hyperlipidemia, unspecified; G47.33 Obstructive sleep apnea (adult) (pediatric); M19.90 Unspecified osteoarthritis, unspecified site; F41.8 Other specified anxiety disorders; K21.9 Gastro-esophageal reflux disease without esophagitis; J44.9 Chronic obstructive pulmonary disease, unspecified